=== PATIENT | male | born 1980 | race Caucasian/White ===

== ENCOUNTER 2017-12-29 18:06 | Inpatient (IN) ==
[2017-12-29 22:05] LABS: Baso # (Auto) 0.1 th/mm3 (0.0-0.2); Baso % (Auto) 0.9 % (0.0-2.0); Eos # (Auto) 0.1 th/mm3 (0.0-0.4); Eos % (Auto) 0.5 % (0.0-4.0); Hematocrit 39.2 % (39.0-51.0); Hemoglobin 12.7 gm/dL (13.0-17.0); Lymph # (Auto) 0.9 th/mm3 (1.0-4.8); Lymph % (Auto) 8.5 % (9.0-44.0); Mean Corpuscular HGB Conc 32.3 % (32.0-36.0); Mean Corpuscular Hemoglobin 27.7 pg (27.0-34.0); Mean Corpuscular Volume 85.6 fL (80.0-100.0); Mean Platelet Volume 7.9 fL (7.0-11.0); Mono # (Auto) 0.5 th/mm3 (0.0-0.9); Mono % (Auto) 4.6 % (0.0-8.0); Neut # (Auto) 9.6 th/mm3 (1.8-7.7); Neut % (Auto) 85.5 % (16.0-70.0); Platelet Count 423 th/mm3 (150-450); Red Blood Count 4.58 mil/mm3 (4.50-5.90); Red Cell Distribution Width 15.1 % (11.6-17.2); White Blood Count 11.2 th/mm3 (4.0-11.0)
--- NOTE | 2017-12-29 22:09 | CT ---
EXAM DATE: 12/29/2017 9:34 PM EDT AGE/SEX: 37 years / Male INDICATIONS: Abdomen pain past week. CLINICAL DATA: This is the patient's initial encounter. Patient reports that signs and symptoms have been present for 1 week and indicates a pain score of 7/10. MEDICAL/SURGICAL HISTORY: None. Non-responsive. ORAL CONTRAST: No oral contrast ingested. RADIATION DOSE: 8.89 CTDI (mGy) COMPARISON: No prior exams available for comparison. TECHNIQUE: Multiple contiguous axial images were obtained through the abdomen and pelvis following b olus infusion of 95 ml Omnipaque 350 (iohexol) nonionic water-soluble contrast as a single exam dos e. No oral contrast ingested. Using automated exposure control and adjustment of the mA and/or kV ac cording to patient size, radiation dose was kept as low as reasonably achievable to obtain optimal di agnostic quality images. DICOM format image data is available electronically for review and comparis on. FINDINGS: Lower Lungs: The visualized lower lungs are clear. Liver: The liver has a homogeneous density without space-occupying lesion. There is no dilation of th e biliary tree. Spleen: Homogeneous density without enlargement. Pancreas: Unremarkable without mass or calcification. Kidneys: Normal in size and shape. No evidence of mass or hydronephrosis. Adrenal Glands: Unremarkable. Aorta: The aorta and proximal iliac vessels are grossly unremarkable without aneurysmal dilation. Bowel/Mesentery: There is marked distention of the proximal colon to the level of the distal transve rse where there is a discrete transition. The bowel at the splenic flexure shows diffuse mural thicke hansel over a short segment with decompression of the descending colon. Abdominal Wall: Intact. Retroperitoneum: No evidence of adenopathy in the retrocrural, para-aortic, or deep pelvic regions. Bladder: Contours are smooth. Reproductive Organs: No abnormal masses or calcifications seen. Inguinal: The inguinal region is unremarkable without evidence of adenopathy. Bony Structures: Unremarkable. Post Contrast: No abnormal areas of enhancement seen. CONCLUSION: 1. Distention of the proximal colon to the distal transverse with a discrete transition at the level of the splenic flexure. 2. There is a short segment of diffuse mural thickening at the splenic flexure. Findings could repre sent a focal colitis or possibly a carcinoma forming an apple core lesion. With the abrupt transition , I favor the latter. Colonoscopy is recommended for further evaluation. Electronically signed by: Canelo Montero MD 12/29/2017 10:07 PM EDT
[2017-12-29 22:19] LABS: Albumin 3.6 g/dL (3.4-5.0); Anion Gap 9 meq/L (5-15); Aspartate Aminotransferase 14 U/L (15-37); Blood Urea Nitrogen 11 mg/dL (7-18); Carbon Dioxide 27.8 meq/L (21.0-32.0); Chloride 104 meq/L (98-107); Glomerular Filtration Rate 85 mL/min (>89); Glucose,Random 106 mg/dL (74-106); Lipase 50 U/L (73-393); Magnesium 2.4 mg/dL (1.5-2.5); Potassium 3.7 meq/L (3.5-5.1); Sodium 141 meq/L (136-145)
[2017-12-29 22:23] LABS: Alanine Aminotransferase 19 U/L (12-78); Alkaline Phosphatase 65 U/L (45-117); Total Protein 8.2 g/dL (6.4-8.2)
[2017-12-29] MEDS ORDERED: hydrALAZINE HCl Inj 20 MG/ML Vial IV.PUSH ONE (22:39)
[2017-12-29] MEDS ORDERED: Sod Chloride 0.9% Inj 1,000 ML IV.SIG SCH (22:45)
[2017-12-29 22:46] LABS: Bilirubin,Urine Negative (Negative); Clarity,Urine Hazy (Clear); Color,Urine Yellow (Yellw/Straw); Glucose,Urine (UA) Negative (Negative); Leukocyte Esterase,Urine Negative (Negative); Mucus,Urine Few /lpf (Occasional); Nitrite,Urine Negative (Negative); Specific Gravity,Urine 1.027 (1.002-1.035); Squamous Epithelial Cell,Urine <1 /hpf (0-5)
--- NOTE | 2017-12-30 00:29 | P.HP ---
History of Present Illness Service: [facility] Primary Care Physician: No Primary Care Physician History of Present Illness: 37-year-old male with no significant past medical history presents to the emergency department for evaluation of abdominal pain. The patient is extremely lethargic and history is obtained mostly from his girlfriend. She reports he has had chronic "digestive issues" since she has known him. She states that for the past 2 days he has had a sharp, stabbing epigastric pain that acutely worsened today. He has had multiple episodes of nonbloody nonbilious emesis and constant nausea. His last bowel movement was approximately 5 days ago. He reports an 8 pound weight loss over the last week. He denies chest pain or shortness of breath. No fever/chills. Inpatient Certification: I certify that the inpatient services were ordered in accordance with Medicare regulations governing the order. This includes certification that hospital inpatient services are reasonable and necessary and in the case of services not specified as inpatient-only under 42 CFR 419.22(n), that they are appropriately provided as inpatient services in accordance to with the 2-midnight benchmark under 43 CFR 412.3(e) Estimated Total Length of Stay (Days): 2 Plans for Post Hospital Care: Home Review of Systems All other systems reviewed negative except as stated in [facility]PI [facility] - History History Provided By: Patient - Medical History Medical History: Medical History (Last Reviewed 12/30/17 @ 00:22 by Arabella Florez MD) Patient denies medical problems - Surgical History Surgical History: Surgical History (Last Reviewed 12/30/17 @ 00:22 by Arabella Florez MD) No history of previous surgery - Family History Family History: Family History (Last Updated 12/30/17 @ 00:22 by Arabella Florez MD) Other Family history unknown - Tobacco History Tobacco Use In Past 30 Days: Yes Smoking Status: Current every day smoker Tobacco Type: Cigarettes - Alcohol History How Often Do You Have a Drink Containing Alcohol: Never - Substance Use History Substance History: Past History - Substance Use Type Crack/Cocaine Status: Sustained Remission - Travel History Recent Travel in the [place] Within the Last 8 Weeks: No Recent Travel Out of the Country Within the Last 8 Weeks: No - Immunization History Tetanus Immunization: <5 Years Medications and Allergies Active Medications: Active Medications Acetaminophen (Tylenol) 650 mg PO Q4H PRN PRN Reason: Temp > 100.4 Sodium Chloride (Ns Inj) 1,000 mls @ 0 mls/hr IV.SIG BOLUS NIGHAT Last Infusion: 12/29/17 23:52 Dose: Infused Sodium Chloride (Ns Inj) 1,000 mls @ 100 mls/hr IV.CONT .Q10H NIGHAT Ondansetron HCl (Zofran Inj) 4 mg IV.PUSH Q6H PRN PRN Reason: NAUSEA OR VOMITING Sodium Chloride (Ns Flush) 2 ml IV.FLUSH PRN PRN PRN Reason: FLUSH AFTER USING IV ACCESS Allergies Allergy/AdvReac Type Severity Reaction Status Date / Time No Known Allergies Allergy Uncoded 08/31/13 13:25 Home Medications Medication Instructions Recorded Confirmed Type No Known Home Medications 12/29/17 12/29/17 History Exam Vital signs: Vital Signs 12/29/17 18:08 12/29/17 21:00 12/29/17 22:00 Temperature 97.8 F Pulse Rate 79 69 68 Respiratory Rate 16 19 16 Blood Pressure 187/96 H 194/112 H 192/88 H Pulse Oximetry 98 97 12/29/17 22:52 12/29/17 23:02 12/29/17 23:55 Temperature Pulse Rate 69 61 65 Respiratory Rate 15 15 16 Blood Pressure 198/110 H 185/103 H 151/87 H Pulse Oximetry 97 97 97 Intake & Output 12/29/17 12/29/17 12/30/17 06:59 18:59 06:59 Intake Total 1000 / 1000 Balance 1000 / 1000 Weight 65.771 kg Intake: IV 1000 / 1000 NS Inj 1,000 ML @ Wide Open IV. 1000 / 1000 SIG BOLUS NIGHAT Rx#:[id number] Narrative: Gen.: No acute distress Head: Normocephalic. Atraumatic. EENT: Pupils equal round and reactive to light. Nose without drainage. Airway intact. Throat without injection. Cardiovascular: Regular rate and rhythm. No murmurs, rubs or gallops. Respiratory: Lungs clear to auscultation bilaterally. No wheezes or rhonchi. Abdomen: Soft, diffusely tender to palpation, nondistended. No peritoneal signs. Musculoskeletal: No gross deformities. No edema. Skin: No obvious rashes or erythema. Neuro: Sensory and motor grossly intact. Cranial nerves II through XII grossly intact. Results - Labs CBC & Chem 7: 12/29/17 21:27 12/29/17 21:27 Labs: Laboratory Results - last 24 hr 12/29/17 12/29/17 12/29/17 21:27 21:27 22:07 WBC 11.2 H RBC 4.58 Hgb 12.7 L Hct 39.2 MCV 85.6 MCH 27.7 MCHC 32.3 RDW 15.1 Plt Count 423 MPV 7.9 Neut % (Auto) 85.5 H Lymph % (Auto) 8.5 L [place] % (Auto) 4.6 Eos % (Auto) 0.5 Baso % (Auto) 0.9 Neut # (Auto) 9.6 H Lymph # (Auto) 0.9 L [place] # (Auto) 0.5 Eos # (Auto) 0.1 Baso # (Auto) 0.1 WBC Differential . Differential Comment Auto diff final Sodium 141 Potassium 3.7 Chloride 104 Carbon Dioxide 27.8 Anion Gap 9 BUN 11 Creatinine 0.99 Estimated GFR 85 L Random Glucose 106 Calcium 9.0 Magnesium 2.4 Total Bilirubin 0.6 AST 14 L ALT 19 Alkaline Phosphatase 65 Total Protein 8.2 Albumin 3.6 Lipase 50 L Urine Color Yellow Urine Clarity Hazy H Urine pH 6.0 Ur Specific [place] 1.027 Urine Protein Negative Urine Glucose (UA) Negative Urine Ketones 20 Urine Occult Blood Negative Urine Nitrate Negative Urine Bilirubin Negative Urine Urobilinogen Less than 2 Ur Leukocyte Esterase Negative Urine RBC 1 Urine WBC 3 Ur Squamous Epith Cells <1 Urine Mucus Few H Micro UA Comment Culture not ind Ur Microscopic Review Not Reportable Urine Culture Comments Culture not ind - Imaging Impressions Abdomen/Pelvis CT 12/29/17 21:21 CONCLUSION: 1. Distention of the proximal colon to the distal transverse with a discrete transition at the level of the splenic flexure. 2. There is a short segment of diffuse mural thickening at the splenic flexure. Findings could represent a focal colitis or possibly a carcinoma forming an apple core lesion. With the abrupt transition, I favor the latter. Colonoscopy is recommended for further evaluation. Caprini VTE Risk Assessment Caprini VTE Risk Assessment: No/Low Risk (score <= 1) Caprini Risk Assessment Model: Point Value = 1 Point Value = 2 Point Value = 3 Point Value = 5 Age 41-60 Minor surgery BMI > 25 kg/m2 Swollen legs Varicose veins or History of unexplained or recurrent spontaneous Oral contraceptives or hormone replacement Sepsis (< 1 month) Serious lung disease, including pneumonia (< 1 month) Abnormal pulmonary function Acute myocardial infarction Congestive heart failure (< 1 month) History of inflammatory bowel disease Medical patient at bed rest Age 61-74 Arthroscopic surgery Major open surgery (> 45 min) Laparoscopic surgery (> 45 min) Malignancy Confined to bed (> 72 hours) Immobilizing plaster cast Central venous access Age >= 75 History of VTE Family history of VTE Factor V Leiden Prothrombin [id number] Lupus anticoagulant Anticardiolipin antibodies Elevated serum homocysteine Heparin-induced thrombocytopenia Other congenital or acquired thrombophilia Stroke (< 1 month) Elective arthroplasty Hip, pelvis, or leg fracture Acute spinal cord injury (< 1 month) Prophylaxis Regimen: Total Risk Factor Score Risk Level Prophylaxis Regimen 0-1 Low Early ambulation 2 Moderate Order ONE of the following: *Sequential Compression Device (SCD) *Heparin 5000 units SQ BID 3-4 Higher Order ONE of the following medications: *Heparin 5000 units SQ TID *Enoxaparin/Lovenox 40 mg SQ daily (WT < 150 kg, CrCl > 30 mL/min) *Enoxaparin/Lovenox 30 mg SQ daily (WT < 150 kg, CrCl > 10-29 mL/min) *Enoxaparin/Lovenox 30 mg SQ BID (WT < 150 kg, CrCl > 30 mL/min) AND/OR *Sequential Compression Device (SCD) 5 or more Highest Order ONE of the following medications: *Heparin 5000 units SQ TID (Preferred with Epidurals) *Enoxaparin/Lovenox 40 mg SQ daily (WT < 150 kg, CrCl > 30 mL/min) *Enoxaparin/Lovenox 30 mg SQ daily (WT < 150 kg, CrCl > 10-29 mL/min) *Enoxaparin/Lovenox 30 mg SQ BID (WT < 150 kg, CrCl > 30 mL/min) AND *Sequential Compression Device (SCD) Assessment and Plan - Plan Assessment/plan: 1. Colonic obstruction/? Mass CT of the abdomen/pelvis shows distention of the proximal colon distal to the transverse with a discrete transition at the level of the splenic flexure. There is a short segment of diffuse mural thickening at the splenic flexure which could represent a focal colitis or possibly carcinoma forming an apple core lesion. Gastroenterology consulted, appreciate assistance 2. Lethargy Unclear etiology Urine drug screen pending Holding pain medications until patient more alert FEN N.p.o. NS at 100 cc/hour Electrolytes: Monitor and replete as needed
[2017-12-30 00:54] LABS: Amphetamine Screen,Urine Pos (Neg); Barbiturate Screen,Urine Neg (Neg); Cannabinoid Screen,Urine Neg (Neg); Cocaine Screen,Urine Neg (Neg)
[2017-12-30 01:06] LABS: Opiate Screen,Urine Neg (Neg)
--- NOTE | 2017-12-30 01:11 | ED ---
HPI General Chief complaint: Abdominal Pain Stated complaint: Patient states stomach pain Time Seen by Provider: 12/29/17 21:07 History of Present Illness HPI narrative: Patient is a 37-year-old male presents emergency department for evaluation of acute on chronic abdominal pain. Patient states his had abdominal pain for about a year but got acutely worse over the palpable past week. Patient has been nauseous vomiting and has had little to no bowel output over the past week. No fevers no cough no congestion no weight loss. No blood in his stool. Patient does not a primary care provider but had been seen here at least once in the emergency department patient fairly somnolent bordering on lethargic on arrival but awakes P did minimal physical stimulation of the shoulders. He adamantly denies ingesting any substance or alcohol tonight. He was vomiting prior to my assessment and was given Zofran by nursing on my verbal order. Patient denies any hematemesis denies bilious emesis. States the pain is primarily in his right lower quadrant, duration associated signs and symptoms as above, states cramping in nature. Related Data Home Medications Medication Instructions Recorded Confirmed No Known Home Medications 12/29/17 12/29/17 Allergies Allergy/AdvReac Type Severity Reaction Status Date / Time No Known Allergies Allergy Uncoded 08/31/13 13:25 Review of Systems ROS: all other systems reviewed are negative [facility] Family History Family History Other Family history unknown Social History Social History Substance History: Past History Smoking Status: Current every day smoker Tobacco Type: Cigarettes How Often Do You Have a Drink Containing Alcohol: Never Recent Travel in [facility] within the Last 8 Weeks: No Recent Out of Country Travel within the Last 8 Weeks: No Substance Abuse Detail Crack/Cocaine: Substance Use Status: Sustained Remission Immunization History Tetanus Immunization: <5 Years Exam Narrative Exam Narrative: GENERAL: Well-developed well-nourished somnolent bordering on lethargic but in no obvious distress peer SKIN: Focused skin assessment warm/dry. HEAD: Atraumatic. Normocephalic. EYES: Pupils equal and round. No scleral icterus. No injection or drainage. ENT: No nasal bleeding or discharge. Mucous membranes pink and moist. NECK: Trachea midline. No JVD. CARDIOVASCULAR: Regular rate and rhythm. No murmur appreciated. RESPIRATORY: No accessory muscle use. Clear to auscultation. Breath sounds equal bilaterally. GASTROINTESTINAL: Abdomen soft, non-tender, nondistended. Hepatic and splenic margins not palpable. Percussion of the abdomen yields no tenderness but it is tympanic to percussion. Patient does have bowel sounds present, rectal exam deferred. MUSCULOSKELETAL: No obvious deformities. No clubbing. No cyanosis. No edema. NEUROLOGICAL: Awake and alert. No obvious cranial nerve deficits. Motor grossly within normal limits. Normal speech. PSYCHIATRIC: Appropriate mood and affect; insight and judgment normal. Course Initial Documented Vital Signs Temperature 97.8 F 12/29/17 18:08 Pulse Rate 79 12/29/17 18:08 Respiratory Rate 16 12/29/17 18:08 Blood Pressure 187/96 H 12/29/17 18:08 Last Documented Vital Signs Temperature 97.8 F 12/29/17 18:08 Pulse Rate 65 12/29/17 23:55 Respiratory Rate 16 12/29/17 23:55 Blood Pressure 151/87 H 12/29/17 23:55 Pulse Oximetry 97 12/29/17 23:55 Medical Decision Making MDM Narrative Medical decision making narrative: Patient room in the emergency department, certainly is somnolent and I wonder about his electrolytes, CBC and BMP are reassuring. The patient does have some tenderness in right lower quadrant initial diagnostic considerations include appendicitis and I think he needs a CAT scan of his abdomen. CAT scan of the abdomen does show significantly dilated large bowel without any small bowel dilation. Radiologist states possibly mild colitis or even an obstructing mass at the colorectal junction. I tried to explain to the new differential considerations to the patient but he continues to drift off to sleep I speak to him, I have added an alcohol and urine drug screen to him. Either way I think he needs to come in and see gastroenterology for consideration of colonoscopy and decompressive colonoscopy and/or surgical consult with the former does not work. I do not see the utility of an NG decompression at this time. Patient was discussed with Dr. Florez who is agreeable. Medical Screen Exam Complete: Yes Emergency Medical Condition: Yes Lab Data Result diagrams: 12/29/17 21:27 12/29/17 21:27 Lab Results 12/29/17 12/29/17 12/29/17 Range/Units 21:27 21:27 22:07 WBC 11.2 H (4.0-11.0) th/mm3 RBC 4.58 (4.50-5.90) mil/mm3 Hgb 12.7 L (13.0-17.0) gm/dL Hct 39.2 (39.0-51.0) % MCV 85.6 (80.0-100.0) fL MCH 27.7 (27.0-34.0) pg MCHC 32.3 (32.0-36.0) % RDW 15.1 (11.6-17.2) % Plt Count 423 (150-450) th/mm3 MPV 7.9 (7.0-11.0) fL Neut % (Auto) 85.5 H (16.0-70.0) % Lymph % (Auto) 8.5 L (9.0-44.0) % [place] % (Auto) 4.6 (0.0-8.0) % Eos % (Auto) 0.5 (0.0-4.0) % Baso % (Auto) 0.9 (0.0-2.0) % Neut # (Auto) 9.6 H (1.8-7.7) th/mm3 Lymph # (Auto) 0.9 L (1.0-4.8) th/mm3 [place] # (Auto) 0.5 (0.0-0.9) th/mm3 Eos # (Auto) 0.1 (0.0-0.4) th/mm3 Baso # (Auto) 0.1 (0.0-0.2) th/mm3 WBC Differential . Differential Comment Auto diff final Sodium 141 (136-145) meq/L Potassium 3.7 (3.5-5.1) meq/L Chloride 104 (98-107) meq/L Carbon Dioxide 27.8 (21.0-32.0) meq/L Anion Gap 9 (5-15) meq/L BUN 11 (7-18) mg/dL Creatinine 0.99 (0.60-1.30) mg/dL Estimated GFR 85 L (>89) mL/min Random Glucose 106 (74-106) mg/dL Calcium 9.0 (8.5-10.1) mg/dL Magnesium 2.4 (1.5-2.5) mg/dL Total Bilirubin 0.6 (0.2-1.0) mg/dL AST 14 L (15-37) U/L ALT 19 (12-78) U/L Alkaline Phosphatase 65 (45-117) U/L Total Protein 8.2 (6.4-8.2) g/dL Albumin 3.6 (3.4-5.0) g/dL Lipase 50 L (73-393) U/L Urine Color Yellow (Yellw/Straw) Urine Clarity Hazy H (Clear) Urine pH 6.0 (5.0-8.5) Ur Specific [place] 1.027 (1.002-1.035) Urine Protein Negative (Neg-Trace) mg/dL Urine Glucose (UA) Negative (Negative) mg/dL Urine Ketones 20 (Negative) mg/dL Urine Occult Blood Negative (Negative) Urine Nitrate Negative (Negative) Urine Bilirubin Negative (Negative) Urine Urobilinogen Less than 2 (Less than 2) mg/dL Ur Leukocyte Esterase Negative (Negative) Urine RBC 1 (0-3) /hpf Urine WBC 3 (0-5) /hpf Ur Squamous Epith Cells <1 (0-5) /hpf Urine Mucus Few H (Occasional) /lpf Micro UA Comment Culture not ind Ur Microscopic Review Not Reportable Urine Culture Comments Culture not ind Imaging Data Radiologist's impression: Abdomen/Pelvis CT 12/29/17 21:21 CONCLUSION: 1. Distention of the proximal colon to the distal transverse with a discrete transition at the level of the splenic flexure. 2. There is a short segment of diffuse mural thickening at the splenic flexure. Findings could represent a focal colitis or possibly a carcinoma forming an apple core lesion. With the abrupt transition, I favor the latter. Colonoscopy is recommended for further evaluation. Discharge Plan Discharge Disposition Patient Disposition: 30 Still Patient Discharge Condition Condition: Stable Discharge Details Diagnosis: Large bowel obstruction Physicians Team ED Provider: Valente Ayala Primary Care Provider: Primary Care Pippa Johnson Attending Provider: Arabella Florez Other Providers: Lul Gibbons Status ED Status: Admitted Patient
[2017-12-30] MEDS: Sod Chloride 0.9% Inj 1,000 ML IV.CONT SCH ×3 (03:10→21:31)
--- NOTE | 2017-12-30 08:51 | P.PN ---
Subjective Interval history: This is a pleasant 37 y/o Male who came to ER with Abdominal pain, lethargic on admission, he has chronic abdominal symptoms. for two days with sharp and stabbing epigastric pain that acutely worsened today. He has had multiple episodes of nonbloody nonbilious emesis and constant nausea. His last bowel movement was approximately 5 days before coming to ER, 8 pound weight loss. 12/30: Seen in his bedroom, stable no nausea, vomit or diarrhea, his Girlfriend in the room, discussed with GI specialist's [employer] CLERK and recommended for EGD and Colonoscopy for tomorrow. Physical Exam Vital signs: Vital Signs 12/29/17 18:08 12/29/17 21:00 12/29/17 22:00 Temperature 97.8 F Pulse Rate 79 69 68 Respiratory Rate 16 19 16 Blood Pressure 187/96 H 194/112 H 192/88 H Pulse Oximetry 98 97 12/29/17 22:52 12/29/17 23:02 12/29/17 23:55 Temperature Pulse Rate 69 61 65 Respiratory Rate 15 15 16 Blood Pressure 198/110 H 185/103 H 151/87 H Pulse Oximetry 97 97 97 12/30/17 05:04 12/30/17 08:00 Temperature 97.4 F L 98 F Pulse Rate 62 69 Respiratory Rate 18 18 Blood Pressure 185/113 H 160/98 H Pulse Oximetry 99 99 Intake & Output 12/29/17 12/30/17 12/30/17 18:59 06:59 18:59 Intake Total 1000 / 1000 Output Total 300 / 300 Balance 700 / 700 Weight 65.771 kg 65.7 kg Intake: IV 1000 / 1000 NS Inj 1,000 ML @ Wide Open IV. 1000 / 1000 SIG BOLUS NIGHAT Rx#:[id number] Output: Urine 300 / 300 Other: # Voids 350 Narrative: Gen.: No acute distress Head: Normocephalic. Atraumatic. EENT: Pupils equal round and reactive to light. Nose without drainage. Airway intact. Throat without injection. Cardiovascular: Regular rate and rhythm. No murmurs, rubs or gallops. Respiratory: Lungs clear to auscultation bilaterally. No wheezes or rhonchi. Abdomen: Soft, diffusely tender to palpation, nondistended. No peritoneal signs. Musculoskeletal: No gross deformities. No edema. Skin: No obvious rashes or erythema. Neuro: Sensory and motor grossly intact. Cranial nerves II through XII grossly intact. Results - Labs CBC & Chem 7: 12/29/17 21:27 12/29/17 21:27 Laboratory Results - last 24 hr 12/29/17 12/29/17 12/29/17 21:27 21:27 21:27 WBC 11.2 H RBC 4.58 Hgb 12.7 L Hct 39.2 MCV 85.6 MCH 27.7 MCHC 32.3 RDW 15.1 Plt Count 423 MPV 7.9 Neut % (Auto) 85.5 H Lymph % (Auto) 8.5 L [place] % (Auto) 4.6 Eos % (Auto) 0.5 Baso % (Auto) 0.9 Neut # (Auto) 9.6 H Lymph # (Auto) 0.9 L [place] # (Auto) 0.5 Eos # (Auto) 0.1 Baso # (Auto) 0.1 WBC Differential . Differential Comment Auto diff final Sodium 141 Potassium 3.7 Chloride 104 Carbon Dioxide 27.8 Anion Gap 9 BUN 11 Creatinine 0.99 Estimated GFR 85 L Random Glucose 106 Calcium 9.0 Magnesium 2.4 Total Bilirubin 0.6 AST 14 L ALT 19 Alkaline Phosphatase 65 Total Protein 8.2 Albumin 3.6 Lipase 50 L Urine Color Urine Clarity Urine pH Ur Specific Organ Urine Protein Urine Glucose (UA) Urine Ketones Urine Occult Blood Urine Nitrate Urine Bilirubin Urine Urobilinogen Ur Leukocyte Esterase Urine RBC Urine WBC Ur Squamous Epith Cells Urine Mucus Micro UA Comment Ur Microscopic Review Urine Culture Comments Urine Opiates Screen Ur Barbiturates Screen Ur Amphetamines Screen U Benzodiazepines Scrn Urine Cocaine Screen U Cannabinoids Screen Serum Alcohol Less than 3 12/29/17 12/29/17 22:07 22:07 WBC RBC Hgb Hct MCV MCH MCHC RDW Plt Count MPV Neut % (Auto) Lymph % (Auto) [place] % (Auto) Eos % (Auto) Baso % (Auto) Neut # (Auto) Lymph # (Auto) [place] # (Auto) Eos # (Auto) Baso # (Auto) WBC Differential Differential Comment Sodium Potassium Chloride Carbon Dioxide Anion Gap BUN Creatinine Estimated GFR Random Glucose Calcium Magnesium Total Bilirubin AST ALT Alkaline Phosphatase Total Protein Albumin Lipase Urine Color Yellow Urine Clarity Hazy H Urine pH 6.0 Ur Specific Organ 1.027 Urine Protein Negative Urine Glucose (UA) Negative Urine Ketones 20 Urine Occult Blood Negative Urine Nitrate Negative Urine Bilirubin Negative Urine Urobilinogen Less than 2 Ur Leukocyte Esterase Negative Urine RBC 1 Urine WBC 3 Ur Squamous Epith Cells <1 Urine Mucus Few H Micro UA Comment Culture not ind Ur Microscopic Review Not Reportable Urine Culture Comments Culture not ind Urine Opiates Screen Neg Ur Barbiturates Screen Neg Ur Amphetamines Screen Pos H U Benzodiazepines Scrn Neg Urine Cocaine Screen Neg U Cannabinoids Screen Neg Serum Alcohol - Imaging Impressions Abdomen/Pelvis CT 12/29/17 21:21 CONCLUSION: 1. Distention of the proximal colon to the distal transverse with a discrete transition at the level of the splenic flexure. 2. There is a short segment of diffuse mural thickening at the splenic flexure. Findings could represent a focal colitis or possibly a carcinoma forming an apple core lesion. With the abrupt transition, I favor the latter. Colonoscopy is recommended for further evaluation. - Procedures None Assessment and Plan - Plan 1. Colonic obstruction/? Mass CT of the abdomen/pelvis shows distention of the proximal colon distal to the transverse with a discrete transition at the level of the splenic flexure. There is a short segment of diffuse mural thickening at the splenic flexure which could represent a focal colitis or possibly carcinoma forming an apple core lesion. GI specialist recommended for EGD and Colonoscopy for tomorrow. 2. Lethargy Improved. 3. Hypertension probable secondary to Stress, IV fluids giving management PRN for systolic blood pressure >160 mm Hg. NPO at midnight. NS at 100 cc/hour Electrolytes: Monitor and replete as needed Code Status: Full Code. Discussed Condition With: patient, his Girlfriend in the room and nurse miss Alonzo.
--- NOTE | 2017-12-30 12:31 | P.CONGI ---
History of Present Illness Consult date: 12/30/17 Consult reason: Abdominal pain Apple core lesion Chief complaint: Large Bowel Obstruction History of Present Illness: This patient is a 37-year-old male with no significant past medical history. Patient's states that he presented to the emergency department at [facility] on 12/29/2017 with complaints of abdominal pain. Patient states that since 2013 he is has suffered with intestinal cramping. He reports being in [facility] at the time and was given Bentyl which caused him to have increased nausea and did not relieve the abdominal cramping. . He states that that time he had a 70 pound weight loss in a span of 2 months. States he is always had abdominal pain and has tried to follow-up with GI but could not afford the co- pay. Patient states 2-3 months ago he was diagnosed by CT abdomen and pelvis with some type of "intestinal inflammation". He was unable to follow-up due to financial restraints. Patient denies ever having had an EGD or colonoscopy. States that he has not had a BM for 1 week, normally stools are daily hard and brown without any noted bleeding. Patient denies any difficulty swallowing or heartburn . Denies any known family history for any gastrointestinal disorders/diseases. Patient states that he smokes half a pack of cigarettes per day and does not use alcohol. Patient endorses generalized abdominal pain with bloating and nausea for 1 week. He denies any fever or chills. Patient describes discomfort as a burning pressure that is intermittent more so on the right lower quadrant. States pain is somewhat alleviated by rest but definitely aggravated by food intake. <Valentine Alberto - Last Filed: 12/30/17 12:15> Review of Systems All other systems reviewed negative except as stated in HPI Constitutional: Reports anorexia, Reports fatigue <Valentine Alberto - Last Filed: 12/30/17 12:15> PMFSH - History History Provided By: Patient - Medical History Medical History: Medical History (Last Reviewed 12/30/17 @ 00:22 by Arabella Florez MD) Patient denies medical problems - Surgical History Surgical History: Surgical History (Last Reviewed 12/30/17 @ 00:22 by Arabella Florez MD) No history of previous surgery - Family History Family History: Family History (Last Updated 12/30/17 @ 00:22 by Arabella Florez MD) Other Family history unknown - Tobacco History Tobacco Use In Past 30 Days: Yes Smoking Status: Current every day smoker Tobacco Type: Cigarettes - Alcohol History How Often Do You Have a Drink Containing Alcohol: Never - Substance Use History Substance History: Past History - Substance Use Type Crack/Cocaine Status: Sustained Remission - Travel History Recent Travel in the [place] Within the Last 8 Weeks: No Recent Travel Out of the Country Within the Last 8 Weeks: No - Immunization History Tetanus Immunization: <5 Years <Valentine Ablerto - Last Filed: 12/30/17 12:15> - Medical History Medical History: Medical History (Last Reviewed 12/30/17 @ 00:22 by Arabella Florez MD) Patient denies medical problems - Surgical History Surgical History: Surgical History (Last Reviewed 12/30/17 @ 00:22 by Arabella Florez MD) No history of previous surgery - Family History Family History: Family History (Last Updated 12/30/17 @ 00:22 by Arabella Florez MD) Other Family history unknown <Lul Gibbons - Last Filed: 12/30/17 22:54> Medications and Allergies Active Medications: Active Medications Acetaminophen (Tylenol) 650 mg PO Q4H PRN PRN Reason: Temp > 100.4 Sodium Chloride (Ns Inj) 1,000 mls @ 0 mls/hr IV.SIG BOLUS [facility] Last Infusion: 12/29/17 23:52 Dose: Infused Sodium Chloride (Ns Inj) 1,000 mls @ 100 mls/hr IV.CONT .Q10H NIGHAT Last Admin: 12/30/17 03:10 Dose: 100 mls/hr Ondansetron HCl (Zofran Inj) 4 mg IV.PUSH Q6H PRN PRN Reason: NAUSEA OR VOMITING Polyethylene Glycol/Electrolytes (Colyte Liq) 4,000 ml PO ONCE ONE Stop: 12/30/17 16:01 Sodium Chloride (Ns Flush) 2 ml IV.FLUSH PRN PRN PRN Reason: FLUSH AFTER USING IV ACCESS <Valentine Alberto - Last Filed: 12/30/17 12:15> Active Medications: Active Medications Acetaminophen (Tylenol) 650 mg PO Q4H PRN PRN Reason: Temp > 100.4 Clonidine HCl (Catapres) 0.1 mg PO Q6H PRN PRN Reason: HYPERTENSION Last Admin: 12/30/17 21:30 Dose: 0.1 mg Sodium Chloride (Ns Inj) 1,000 mls @ 0 mls/hr IV.SIG BOLUS NIGHAT Last Infusion: 12/29/17 23:52 Dose: Infused Sodium Chloride (Ns Inj) 1,000 mls @ 100 mls/hr IV.CONT .Q10H NIGHAT Last Admin: 12/30/17 21:31 Dose: 100 mls/hr Ondansetron HCl (Zofran Inj) 4 mg IV.PUSH Q6H PRN PRN Reason: NAUSEA OR VOMITING Sodium Chloride (Ns Flush) 2 ml IV.FLUSH PRN PRN PRN Reason: FLUSH AFTER USING IV ACCESS <Lul Gibbons E - Last Filed: 12/30/17 22:54> Allergies Allergy/AdvReac Type Severity Reaction Status Date / Time No Known Allergies Allergy Uncoded 08/31/13 13:25 Home Medications Medication Instructions Recorded Confirmed Type No Known Home Medications 12/29/17 12/29/17 History Exam Vital signs: Vital Signs 12/29/17 18:08 12/29/17 21:00 12/29/17 22:00 Temperature 97.8 F Pulse Rate 79 69 68 Respiratory Rate 16 19 16 Blood Pressure 187/96 H 194/112 H 192/88 H Pulse Oximetry 98 97 12/29/17 22:52 12/29/17 23:02 12/29/17 23:55 Temperature Pulse Rate 69 61 65 Respiratory Rate 15 15 16 Blood Pressure 198/110 H 185/103 H 151/87 H Pulse Oximetry 97 97 97 12/30/17 05:04 12/30/17 08:00 Temperature 97.4 F L 98 F Pulse Rate 62 69 Respiratory Rate 18 18 Blood Pressure 185/113 H 160/98 H Pulse Oximetry 99 99 Intake & Output 12/29/17 12/30/17 12/30/17 18:59 06:59 18:59 Intake Total 1000 / 1000 Output Total 300 / 300 Balance 700 / 700 Weight 65.771 kg 65.7 kg Intake: IV 1000 / 1000 NS Inj 1,000 ML @ Wide Open IV. 1000 / 1000 SIG BOLUS NIGHAT Rx#:[id number] Output: Urine 300 / 300 Other: # Voids 350 - Constitutional mild distress - Routine HEENT Exam Head: Present: normocephalic - Routine Respiratory Exam Present: CTA bilaterally. Absent: accessory muscle use - Routine Cardiovascular Exam Present: RRR - Routine Abdominal Exam Present: soft, normoactive bowel sounds, tenderness, guarding. Absent: distended, firm - Routine Extremities Exam Present: full ROM, pulses intact. Absent: edema - Routine Skin Exam Present: dry, warm. Absent: pallor, jaundice - Routine Neurological Exam Present: alert, oriented X3 <Alberto,Valentine - Last Filed: 12/30/17 12:15> Vital signs: Vital Signs 12/29/17 23:02 12/29/17 23:55 12/30/17 05:04 Temperature 97.4 F L Pulse Rate 61 65 62 Respiratory Rate 15 16 18 Blood Pressure 185/103 H 151/87 H 185/113 H Pulse Oximetry 97 97 99 12/30/17 08:00 12/30/17 12:00 12/30/17 16:00 Temperature 98 F 98.4 F 98.5 F Pulse Rate 69 73 69 Respiratory Rate 18 18 18 Blood Pressure 160/98 H 147/96 H 153/88 H Pulse Oximetry 99 99 100 Intake & Output 12/30/17 12/30/17 12/31/17 06:59 18:59 06:59 Intake Total 1000 / 1000 1360 / 1360 1000 / 1000 Output Total 300 / 300 400 / 400 Balance 700 / 700 960 / 960 1000 / 1000 Weight 65.7 kg Intake: IV 1000 / 1000 1000 / 1000 1000 / 1000 NS Inj 1,000 ML @ 100 mls/hr IV 1000 / 1000 1000 / 1000 .CONT .Q10H NIGHAT Rx#:[id number] NS Inj 1,000 ML @ Wide Open IV. 1000 / 1000 SIG BOLUS NIGHAT Rx#:[id number] Oral 360 / 360 Output: Urine 300 / 300 400 / 400 Other: # Voids 350 # Bowel Movements 0 <Lul Gibbons - Last Filed: 12/30/17 22:54> Results - Labs CBC & Chem 7: 12/29/17 21:27 12/29/17 21:27 Labs: Laboratory Results - last 24 hr 12/29/17 12/29/17 12/29/17 21:27 21:27 21:27 WBC 11.2 H RBC 4.58 Hgb 12.7 L Hct 39.2 MCV 85.6 MCH 27.7 MCHC 32.3 RDW 15.1 Plt Count 423 MPV 7.9 Neut % (Auto) 85.5 H Lymph % (Auto) 8.5 L [place] % (Auto) 4.6 Eos % (Auto) 0.5 Baso % (Auto) 0.9 Neut # (Auto) 9.6 H Lymph # (Auto) 0.9 L [place] # (Auto) 0.5 Eos # (Auto) 0.1 Baso # (Auto) 0.1 WBC Differential . Differential Comment Auto diff final Sodium 141 Potassium 3.7 Chloride 104 Carbon Dioxide 27.8 Anion Gap 9 BUN 11 Creatinine 0.99 Estimated GFR 85 L Random Glucose 106 Calcium 9.0 Magnesium 2.4 Total Bilirubin 0.6 AST 14 L ALT 19 Alkaline Phosphatase 65 Total Protein 8.2 Albumin 3.6 Lipase 50 L Urine Color Urine Clarity Urine pH Ur Specific [place] Urine Protein Urine Glucose (UA) Urine Ketones Urine Occult Blood Urine Nitrate Urine Bilirubin Urine Urobilinogen Ur Leukocyte Esterase Urine RBC Urine WBC Ur Squamous Epith Cells Urine Mucus Micro UA Comment Ur Microscopic Review Urine Culture Comments Urine Opiates Screen Ur Barbiturates Screen Ur Amphetamines Screen U Benzodiazepines Scrn Urine Cocaine Screen U Cannabinoids Screen Serum Alcohol Less than 3 12/29/17 12/29/17 22:07 22:07 WBC RBC Hgb Hct MCV MCH MCHC RDW Plt Count MPV Neut % (Auto) Lymph % (Auto) [place] % (Auto) Eos % (Auto) Baso % (Auto) Neut # (Auto) Lymph # (Auto) [place] # (Auto) Eos # (Auto) Baso # (Auto) WBC Differential Differential Comment Sodium Potassium Chloride Carbon Dioxide Anion Gap BUN Creatinine Estimated GFR Random Glucose Calcium Magnesium Total Bilirubin AST ALT Alkaline Phosphatase Total Protein Albumin Lipase Urine Color Yellow Urine Clarity Hazy H Urine pH 6.0 Ur Specific [place] 1.027 Urine Protein Negative Urine Glucose (UA) Negative Urine Ketones 20 Urine Occult Blood Negative Urine Nitrate Negative Urine Bilirubin Negative Urine Urobilinogen Less than 2 Ur Leukocyte Esterase Negative Urine RBC 1 Urine WBC 3 Ur Squamous Epith Cells <1 Urine Mucus Few H Micro UA Comment Culture not ind Ur Microscopic Review Not Reportable Urine Culture Comments Culture not ind Urine Opiates Screen Neg Ur Barbiturates Screen Neg Ur Amphetamines Screen Pos H U Benzodiazepines Scrn Neg Urine Cocaine Screen Neg U Cannabinoids Screen Neg Serum Alcohol - Imaging Impressions Abdomen/Pelvis CT 12/29/17 21:21 CONCLUSION: 1. Distention of the proximal colon to the distal transverse with a discrete transition at the level of the splenic flexure. 2. There is a short segment of diffuse mural thickening at the splenic flexure. Findings could represent a focal colitis or possibly a carcinoma forming an apple core lesion. With the abrupt transition, I favor the latter. Colonoscopy is recommended for further evaluation. <Valentine Alberto - Last Filed: 12/30/17 12:15> - Labs CBC & Chem 7: 12/29/17 21:27 12/29/17 21:27 Labs: Laboratory Results - last 24 hr 12/29/17 12/29/17 21:27 22:07 Urine Opiates Screen Neg Ur Barbiturates Screen Neg Ur Amphetamines Screen Pos H U Benzodiazepines Scrn Neg Urine Cocaine Screen Neg U Cannabinoids Screen Neg Serum Alcohol Less than 3 <Lul Gibbons - Last Filed: 12/30/17 22:54> Assessment and Plan (1) Abdominal pain Status: Acute Code(s): R10.9 - Unspecified abdominal pain - Plan This patient is a 37-year-old male with no significant past medical history. Patient's states that he presented to the emergency department at [facility] on 12/29/2017 with complaints of abdominal pain. Patient states that since 2013 he is has suffered with intestinal cramping. He reports being in [facility] at the time and was given Bentyl which caused him to have increased nausea and did not relieve the abdominal cramping. . He states that that time he had a 70 pound weight loss in a span of 2 months. States he is always had abdominal pain and has tried to follow-up with GI but could not afford the co- pay. Patient states 2-3 months ago he was diagnosed by CT abdomen and pelvis with some type of "intestinal inflammation". He was unable to follow-up due to financial restraints. Patient denies ever having had an EGD or colonoscopy. States that he has not had a BM for 1 week, normally stools are daily hard and brown without any noted bleeding. Patient denies any difficulty swallowing or heartburn . Denies any known family history for any gastrointestinal disorders/diseases. Patient states that he smokes half a pack of cigarettes per day and does not use alcohol. Patient endorses generalized abdominal pain with bloating and nausea for 1 week. He denies any fever or chills. Patient describes discomfort as a burning pressure that is intermittent more so on the right lower quadrant. States pain is somewhat alleviated by rest but definitely aggravated by food intake Abdominal pain/apple core lesion Patient presents 1 week history of generalized abdominal pain with bloating and nausea. History of same since 2013. (12/29) CT abdomen and pelvis revealed the following findings :. Distention of the proximal colon to the distal transverse with a discrete transition at the level of the splenic flexure. There is a short segment of diffuse mural thickening at the splenic flexure. Findings could represent a focal colitis or possibly a carcinoma forming an apple core lesion. WBC 11.2 hemoglobin 12.7 hematocrit 39.2 total bilirubin 0.6 AST 14 ALT 19 alk phos 65 lipase 50 Plan -Clear liquid diet today -N.p.o. after midnight -Obtain consent for EGD and colonoscopy -Pain medication and antiemetics as per attending -IV hydration -Supportive care -Further recommendations to follow based on patient's status and findings This patient has been seen by myself and Dr. Gibbons and this note is written on his behalf - Attending Attestation Dr. Gibbons <Valentine Alberto - Last Filed: 12/30/17 12:15> (1) Abdominal pain Status: Acute Code(s): R10.9 - Unspecified abdominal pain - Plan Patient seen and examined Agree with above history and physical Continue with current supportive care Monitor labs Plan for an EGD with a colonoscopy tomorrow <Lul Gibbons E - Last Filed: 12/30/17 22:54>
[2017-12-30] MEDS ORDERED: PEG 3350/E-Lyte Soln 4000 ML Bottle PO ONE (16:00)
[2017-12-30] MEDS ORDERED: Morphine Sulfate Inj 2 MG/ML Vial IV.PUSH ONE (23:45)
[2017-12-31 07:06] LABS: Baso % (Auto) 0.4 % (0.0-2.0); Eos % (Auto) 0.2 % (0.0-4.0); Hematocrit 42.1 % (39.0-51.0); Hemoglobin 13.8 gm/dL (13.0-17.0); Lymph # (Auto) 0.5 th/mm3 (1.0-4.8); Mean Corpuscular HGB Conc 32.8 % (32.0-36.0); Mean Corpuscular Volume 85.3 fL (80.0-100.0); Mono # (Auto) 0.4 th/mm3 (0.0-0.9); Mono % (Auto) 3.5 % (0.0-8.0); Neut % (Auto) 90.9 % (16.0-70.0); Platelet Count 384 th/mm3 (150-450); Red Blood Count 4.94 mil/mm3 (4.50-5.90); Red Cell Distribution Width 15.1 % (11.6-17.2)
[2017-12-31 07:31] LABS: Carcinoembryonic Antigen 3.6 ng/mL (0.2-5.0)
[2017-12-31 07:34] LABS: Anion Gap 9 meq/L (5-15); Blood Urea Nitrogen 11 mg/dL (7-18); Calcium 8.5 mg/dL (8.5-10.1); Chloride 99 meq/L (98-107); Glomerular Filtration Rate Greater Than 89 mL/min (>89); Glucose,Random 76 mg/dL (74-106); Potassium 3.6 meq/L (3.5-5.1); Sodium 135 meq/L (136-145)
[2017-12-31] MEDS: Sod Chloride 0.9% Inj 1,000 ML IV.CONT SCH ×2 (07:41→17:11)
[2017-12-31] MEDS ORDERED: Magnesium Citrate Liq 300 ML Bottle PO ONE ×4 (09:00→23:58)
[2017-12-31] MEDS ORDERED: Chlorhexidine Gluconate 2% 1 Pack (2 Cloths) TOPICAL ONE (09:57)
[2017-12-31] MEDS ORDERED: Metoprolol Tartrate 25 MG Tablet PO ONE (09:57)
[2017-12-31] MEDS ORDERED: Sodium Chlor 0.9% Inj 500 ML IV.SIG ONE (10:00)
--- NOTE | 2017-12-31 11:33 | P.PCN ---
Date of procedure: 12/31/17 Pre-op diagnosis: Abdominal pain, abnormal findings on CT suggestive of colon lesion Procedure: PROCEDURE PERFORMED EGD followed by an incomplete colonoscopy to the sigmoid region due to poor prep PROCEDURE: The procedure, risks and benefits were discussed with Patient/POA and informed consent was obtained. Anesthesia sedated Patient with Diprivan. Patient was placed in the left lateral decubitus position. EGD: The Pentax videoscope was introduced through the oropharynx and advanced to the second portion of the duodenum under direct visualization. Retroflexion was performed in the stomach. FINDINGS: The esophagus this appeared to be unremarkable and within normal limits The stomach this to appear to be unremarkable and within normal limits The duodenum also appeared to be unremarkable within normal limits possible slight dilation of the duodenal lumen but otherwise unremarkable Colonoscopy: The Pentax videoscope was introduced through the rectum and advanced to sigmoid. Retroflexion was performed in the rectum. Colonic prep was very poor FINDINGS: Little could be seen as far as the colonic mucosa due to poor prep the procedure was aborted ESTIMATED BLOOD LOSS: None SPECIMENS REMOVED: None COMPLICATIONS: None IMPRESSION: Normal EGD possibly slightly dilated duodenum Incomplete colonoscopy poor prep PLAN: Obtain CEA Continue with prepping and repeat colonoscopy in a.m. Anesthesia: MAC Surgeon: Lul Gibbons Condition: stable Disposition: floor
[2017-12-31] MEDS ORDERED: Influenza (Quadrivalent) Vaccine 0.5 ML Syringe IM ONE (15:30)
--- NOTE | 2017-12-31 16:51 | P.PN ---
Subjective Interval history: This is a pleasant 37 y/o Male who came to ER with Abdominal pain, lethargic on admission, he has chronic abdominal symptoms. for two days with sharp and stabbing epigastric pain that acutely worsened today. He has had multiple episodes of nonbloody nonbilious emesis and constant nausea. His last bowel movement was approximately 5 days before coming to ER, 8 pound weight loss. 12/30: Seen in his bedroom, stable no nausea, vomit or diarrhea, his Girlfriend in the room, discussed with GI specialist's [employer] and recommended for EGD and Colonoscopy for tomorrow. 12/31: Stable in his bedroom status post EGD performed today found Normal EGD, Incomplete Colonoscopy due to Poor Colon Prep. recommended to obtain CEA, continue prepping and repeat colonoscopy in am tomorrow. no nausea vomit or diarrhea. Physical Exam Vital signs: Vital Signs 12/30/17 21:00 12/30/17 23:23 12/31/17 00:40 Temperature 98 F 98.2 F 97.8 F Pulse Rate 70 70 69 Respiratory Rate 20 17 17 Blood Pressure 189/101 H 189/102 H 142/91 H Pulse Oximetry 98 100 98 12/31/17 04:00 12/31/17 08:00 12/31/17 11:31 Temperature 98.3 F 98.3 F 98.1 F Pulse Rate 63 63 65 Respiratory Rate 20 16 16 Blood Pressure 171/84 H 175/98 H 123/82 Pulse Oximetry 100 100 100 Intake & Output 12/30/17 12/31/17 12/31/17 18:59 06:59 18:59 Intake Total 1360 / 1360 1000 / 1000 1200 / 1200 Output Total 400 / 400 Balance 960 / 960 1000 / 1000 1200 / 1200 Weight 68.039 kg Intake: IV 1000 / 1000 1000 / 1000 1000 / 1000 NS Inj 1,000 ML @ 100 mls/hr IV 1000 / 1000 1000 / 1000 1000 / 1000 .CONT .Q10H [facility] Rx#:[id number] Oral 360 / 360 Anesthesia Amount 200 / 200 Output: Urine 400 / 400 Other: # Voids 2 Date of Last Bowel Movement 12/30/17 # Bowel Movements 0 1 Weight On Admission 68.039 kg Narrative: Gen.: No acute distress Head: Normocephalic. Atraumatic. EENT: Pupils equal round and reactive to light. Nose without drainage. Airway intact. Throat without injection. Cardiovascular: Regular rate and rhythm. No murmurs, rubs or gallops. Respiratory: Lungs clear to auscultation bilaterally. No wheezes or rhonchi. Abdomen: Soft, diffusely tender to palpation, nondistended. No peritoneal signs. Musculoskeletal: No gross deformities. No edema. Skin: No obvious rashes or erythema. Neuro: Sensory and motor grossly intact. Cranial nerves II through XII grossly intact. Results - Labs CBC & Chem 7: 12/31/17 05:56 12/31/17 05:56 Laboratory Results - last 24 hr 12/31/17 12/31/17 12/31/17 05:56 05:56 05:56 WBC 11.0 RBC 4.94 Hgb 13.8 Hct 42.1 MCV 85.3 MCH 28.0 MCHC 32.8 RDW 15.1 Plt Count 384 MPV 8.0 Neut % (Auto) 90.9 H Lymph % (Auto) 5.0 L [place] % (Auto) 3.5 Eos % (Auto) 0.2 Baso % (Auto) 0.4 Neut # (Auto) 10.0 H Lymph # (Auto) 0.5 L [place] # (Auto) 0.4 Eos # (Auto) 0.0 Baso # (Auto) 0.0 WBC Differential . Differential Comment Auto diff final Sodium 135 L Potassium 3.6 Chloride 99 Carbon Dioxide 27.0 Anion Gap 9 BUN 11 Creatinine 0.86 Estimated GFR Greater than 89 Random Glucose 76 Calcium 8.5 Tumor Marker AFP 3.0 Carcinoembryonic Ag 3.6 12/31/17 12:49 WBC RBC Hgb Hct MCV MCH MCHC RDW Plt Count MPV Neut % (Auto) Lymph % (Auto) [place] % (Auto) Eos % (Auto) Baso % (Auto) Neut # (Auto) Lymph # (Auto) [place] # (Auto) Eos # (Auto) Baso # (Auto) WBC Differential Differential Comment Sodium Potassium Chloride Carbon Dioxide Anion Gap BUN Creatinine Estimated GFR Random Glucose Calcium Tumor Marker AFP Carcinoembryonic Ag 3.3 - Imaging Abdomen/Pelvis CT 12/29/17 21:21 CONCLUSION: 1. Distention of the proximal colon to the distal transverse with a discrete transition at the level of the splenic flexure. 2. There is a short segment of diffuse mural thickening at the splenic flexure. Findings could represent a focal colitis or possibly a carcinoma forming an apple core lesion. With the abrupt transition, I favor the latter. Colonoscopy is recommended for further evaluation. - Procedures Date of procedure: 12/31/17 Pre-op diagnosis: Abdominal pain, abnormal findings on CT suggestive of colon lesion EGD followed by an incomplete colonoscopy to the sigmoid region due to poor prep IMPRESSION: Normal EGD possibly slightly dilated duodenum Incomplete colonoscopy poor prep PLAN: Obtain CEA Continue with prepping and repeat colonoscopy in a.m. [place] [facility] [place] Lul Gibbons Assessment and Plan - Plan 1. Colonic obstruction/? Mass CT of the abdomen/pelvis shows distention of the proximal colon distal to the transverse with a discrete transition at the level of the splenic flexure. There is a short segment of diffuse mural thickening at the splenic flexure which could represent a focal colitis or possibly carcinoma forming an apple core lesion. 12/31: Status post EGD performed today found Normal EGD, Incomplete Colonoscopy due to Poor Colon Prep. recommended to obtain CEA, continue prepping and repeat colonoscopy in am tomorrow. 2. Hypertension probable secondary to Stress, IV fluids giving management PRN for systolic blood pressure >160 mm Hg. NPO at midnight. NS at 100 cc/hour Electrolytes: Monitor and replete as needed Code Status: Full code. Discussed Condition With: Patient, Nurse Miss Alonzo and his girlfriend. Discharge Planning: Once cleared by GI specialist.
[2017-12-31] MEDS: Acetaminophen 325 MG Tablet PO PRN ×2 (18:03→23:45)
[2018-01-01] MEDS: Sod Chloride 0.9% Inj 1,000 ML IV.CONT SCH ×2 (08:06→16:51)
--- NOTE | 2018-01-01 10:27 | P.PN ---
Subjective Interval history: Follow-up for large bowel obstruction. Patient is currently doing well. However, he complains of right-sided abdominal pain. He is scheduled for repeat colonoscopy today. Physical Exam Vital signs: Vital Signs 12/31/17 11:31 12/31/17 16:00 12/31/17 18:35 Temperature 98.1 F 98.7 F Pulse Rate 65 73 Respiratory Rate 16 16 16 Blood Pressure 123/82 114/76 Pulse Oximetry 100 98 12/31/17 20:00 01/01/18 00:00 01/01/18 08:00 Temperature 98.2 F 98.1 F 98.2 F Pulse Rate 70 65 62 Respiratory Rate 20 20 18 Blood Pressure 137/95 H 151/80 H 164/89 H Pulse Oximetry 100 96 98 Intake & Output 12/31/17 01/01/18 01/01/18 18:59 06:59 18:59 Intake Total 2700 / 2700 200 / 200 1000 / 1000 Balance 2700 / 2700 200 / 200 1000 / 1000 Weight 99.7 kg Intake: IV 2000 / 2000 1000 / 1000 NS Inj 1,000 ML @ 100 mls/hr IV 2000 / 2000 1000 / 1000 .CONT .Q10H [facility] Rx#:[id number] Oral 500 / 500 200 / 200 Anesthesia Amount 200 / 200 Other: # Voids 2 3 Date of Last Bowel Movement 12/31/17 # Bowel Movements 1 Narrative: Gen.: No acute distress Head: Normocephalic. Atraumatic. EENT: Pupils equal round and reactive to light. Nose without drainage. Airway intact. Throat without injection. Cardiovascular: Regular rate and rhythm. No murmurs, rubs or gallops. Respiratory: Lungs clear to auscultation bilaterally. No wheezes or rhonchi. Abdomen: Soft, tender to palpation,latanya right lower quadrant, nondistended. No peritoneal signs. Musculoskeletal: No gross deformities. No edema. Skin: No obvious rashes or erythema. Neuro: Sensory and motor grossly intact. Cranial nerves II through XII grossly intact. Results - Labs CBC & Chem 7: 12/31/17 05:56 12/31/17 05:56 Laboratory Results - last 24 hr 12/31/17 12:49 Carcinoembryonic Ag 3.3 - Imaging Abdomen/Pelvis CT 12/29/17 21:21 CONCLUSION: 1. Distention of the proximal colon to the distal transverse with a discrete transition at the level of the splenic flexure. 2. There is a short segment of diffuse mural thickening at the splenic flexure. Findings could represent a focal colitis or possibly a carcinoma forming an apple core lesion. With the abrupt transition, I favor the latter. Colonoscopy is recommended for further evaluation. - Procedures Date of procedure: 12/31/17 Pre-op diagnosis: Abdominal pain, abnormal findings on CT suggestive of colon lesion EGD followed by an incomplete colonoscopy to the sigmoid region due to poor prep IMPRESSION: Normal EGD possibly slightly dilated duodenum Incomplete colonoscopy poor prep PLAN: Obtain CEA Continue with prepping and repeat colonoscopy in a.m. Anesthesia: [facility] [place] Surgeon: Lul Gibbons Assessment and Plan - Plan Mr. Madrid is a 37-year-old male with no significant past medical history presents to the emergency department for evaluation of abdominal pain. CT abd/ pelvis shows large bowel obstruction and possible mass. GI consulted. EGD/ Colonoscopy was done on 12/31/2017 and again Colonoscopy on 01/01/2018. Colonoscopy showed a obstructing colonic mass in the distal transverse colon. Colorectal surgery was consulted. Distal transverse colon mass -Status post colonoscopy. Patient is waiting for colorectal surgery evaluation. -Continue acetaminophen. If needed we can add other pain medications. Hypertension -Blood pressure in the 140s and 150s systolic. -We will monitor to see if he needs any antihypertensive medications. Full code. Ambulation, SCDs.
[2018-01-01] MEDS ORDERED: Lidocaine PF 1% Inj 5 ML Syringe OTHER ONE (11:30)
--- NOTE | 2018-01-01 12:02 | P.DIET ---
Nutritional Evaluation Type of nutrition evaluation: initial Nutrition consult regarding: Diet Evaluation Nutrition screening: Weight Loss > 10 lbs Subjective Subjective Comments: Pt scheduled for colonoscopy in am. Pt currently NPO, was on clear liquid diet previously (12/31). Objective - Diagnosis large bowel obstruction - Objective Body Mass Index: 20.78 % IBW: 87 (IBW = 166lb) Body Weight Used for Calculations: Actual Energy Needs - Lower Range (kCal/kg): 25 Energy Needs - Upper Range (kCal/kg): 30 Lower Limit kCal/kg (kCals): 1,643 Upper Limit kCal/kg (kCals): 1,971 Lower Limit Protein Factor (Grams per Kg): 1.1 Upper Limit Protein Factor (Grams per Kg): 1.3 Lower Protein Needs (Protein): 72 Upper Protein Needs (Protein): 85 Fluid Factor (ml/kg): 30 Estimated Fluid Needs (ml): 1,971 Dietitian Reviewed in Medical Record: Current diet, Curent medications, Intake & Output, Labs, Medical history Diet Order: NPO Oral Diet Intake Amount: Poor <50% Speech Therapy Recommendations: No Wound Care Note: Lesion: L/R knee, L lao, R abd Assessment Assessment: Pt at nutritional risk r/t reported unplanned wt loss. Pt currently NPO d/t colonoscopy. Will assess pts nutritional needs for a PO supplement as appropriate after pt is able to resume PO intake. Labs reviewed. Monitor NPO status. Dietitian following. Recommendations: 1. Monitor NPO status 2. Will assess pts nutritional needs for a PO supplement as appropriate 3. Dietitian following. Dietitian to Monitor: Lab values, Intake & Output, Diet tolerance, Weight change , PO Intake, Diet advancement, Medical course
--- NOTE | 2018-01-01 12:34 | P.PCN ---
Date of procedure: 01/01/18 Pre-op diagnosis: Abdominal pain, abnormal findings on CT Procedure: PROCEDURE PERFORMED Colonoscopy with biopsy PROCEDURE: The procedure, risks and benefits were discussed with Patient/POA and informed consent was obtained. Anesthesia sedated Patient with Diprivan. Patient was placed in the left lateral decubitus position. Colonoscopy: The Pentax videoscope was introduced through the rectum and advanced to the distal transverse colon. Retroflexion was performed in the rectum. Colonic prep was good FINDINGS: Once the scope was advanced to the splenic flexure and turned into the distal transverse colon there was an obstructing mass I was unable to advance the scope beyond this point biopsies were taken from this area it is probably a malignancy although I did not get a good look at it because of the angulation otherwise the rest of the colon was unremarkable so is retroflexion and rectal examination ESTIMATED BLOOD LOSS: None SPECIMENS REMOVED: Colon biopsy COMPLICATIONS: None IMPRESSION: Obstructing colon mass in the distal transverse colon PLAN: Colorectal surgery have been contacted patient will require surgical resection Anesthesia: SHERRI Surgeon: Lul Gibbons Condition: stable Disposition: floor
[2018-01-01] MEDS ORDERED: Influenza (Quadrivalent) Vaccine 0.5 ML Syringe IM ONE (16:00)
--- NOTE | 2018-01-01 18:39 | XR ---
EXAM DATE: 01/01/2018 6:23 PM EDT AGE/SEX: 37 years / Male INDICATIONS: Evaluate for colon obstruction CLINICAL DATA: This is the patient's initial encounter. Patient reports that signs and symptoms have been present for 3 days and indicates a pain score of 0/10. MEDICAL/SURGICAL HISTORY: None. None. COMPARISON: No prior exams available for comparison. FINDINGS: There is mild gaseous distention of bowel with some air-fluid levels. The transverse colon measures u p to about 5.9 cm in diameter. No free air. No acute bony abnormalities. CONCLUSION: Nonspecific mild gaseous distention of small and large bowel most characteristic of an ileus. Electronically signed by: Darren Westbrook MD 01/01/2018 6:37 PM EDT
[2018-01-01] MEDS: REMOVE OLD NICODERM (NICOTINE) PATCH T-DERMAL SCH (20:20)
[2018-01-02] MEDS: Sod Chloride 0.9% Inj 1,000 ML IV.CONT SCH ×2 (00:35→13:13)
--- NOTE | 2018-01-02 10:08 | P.PN ---
Subjective Interval history: Follow-up for a colonic mass. Patient is currently resting in bed. Denies any chest pain, shortness of breath, fever or chills. He is scheduled for surgical intervention today at 4:30 PM. Physical Exam Vital signs: Vital Signs 01/01/18 12:20 01/01/18 12:49 01/01/18 16:00 Temperature 97.8 F 98.0 F 98.6 F Pulse Rate 60 62 78 Respiratory Rate 14 20 17 Blood Pressure 143/88 H 152/80 H 140/86 Pulse Oximetry 100 100 98 01/01/18 20:00 01/02/18 00:00 01/02/18 04:00 Temperature 98.4 F 98.6 F 98.3 F Pulse Rate 85 82 81 Respiratory Rate 18 20 20 Blood Pressure 140/81 139/80 142/90 H Pulse Oximetry 100 100 99 01/02/18 08:00 Temperature 98.3 F Pulse Rate 75 Respiratory Rate 16 Blood Pressure 133/90 Pulse Oximetry 99 Intake & Output 01/01/18 01/02/18 01/02/18 18:59 06:59 18:59 Intake Total 1400 / 1400 480 / 480 Balance 1400 / 1400 480 / 480 Intake: IV 1000 / 1000 NS Inj 1,000 ML @ 100 mls/hr IV 1000 / 1000 .CONT .Q10H [facility] Rx#:[id number] Oral 480 / 480 Anesthesia Amount 400 / 400 Other: # Voids 1 4 # Urine Diapers 2 Date of Last Bowel Movement 01/01/18 01/01/18 Narrative: Gen.: No acute distress Head: Normocephalic. Atraumatic. EENT: Pupils equal round and reactive to light. Nose without drainage. Airway intact. Throat without injection. Cardiovascular: Regular rate and rhythm. No murmurs, rubs or gallops. Respiratory: Lungs clear to auscultation bilaterally. No wheezes or rhonchi. Abdomen: Soft, tender to palpation,latanya right lower quadrant, nondistended. No peritoneal signs. Musculoskeletal: No gross deformities. No edema. Skin: No obvious rashes or erythema. Neuro: Sensory and motor grossly intact. Cranial nerves II through XII grossly intact. Results - Labs CBC & Chem 7: 12/31/17 05:56 12/31/17 05:56 - Imaging Impressions Abdomen X-Ray 10/25/18 17:44 CONCLUSION: Nonspecific mild gaseous distention of small and large bowel most characteristic of an ileus. - Procedures 12/31/2017 The esophagus this appeared to be unremarkable and within normal limits The stomach this to appear to be unremarkable and within normal limits The duodenum also appeared to be unremarkable within normal limits possible slight dilation of the duodenal lumen but otherwise unremarkable Little could be seen as far as the colonic mucosa due to poor prep the procedure was aborted 01/01/2018 Obstructing colon mass in the distal transverse colon Assessment and Plan - Plan Mr. Madrid is a 37-year-old male with no significant past medical history presents to the emergency department for evaluation of abdominal pain. CT abd/ pelvis shows large bowel obstruction and possible mass. GI consulted. EGD/ Colonoscopy was done on 12/31/2017 and again Colonoscopy on 01/01/2018. Colonoscopy showed a obstructing colonic mass in the distal transverse colon. Colorectal surgery was consulted. Distal transverse colon mass -Status post colonoscopy. Colorectal surgery today. -Continue acetaminophen. Hypertension -BP 130s to 160s, possibly due to pain. -Will consider CCB if needed for BP control. Tobacco abuse - continue Nicotine patch. Full code. Ambulation, SCDs.
[2018-01-02] MEDS ORDERED: Chlorhexidine Gluconate 2% 1 Pack (2 Cloths) TOPICAL ONE (13:22)
[2018-01-02] MEDS ORDERED: Metoprolol Tartrate 25 MG Tablet PO ONE (13:22)
[2018-01-02] MEDS ORDERED: Sodium Chlor 0.9% Inj 500 ML IV.SIG SCH (14:00)
--- NOTE | 2018-01-02 16:10 | P.PNGI ---
Subjective Interval history: Resting in the bed mild anxiety but no obvious nausea vomiting or abdominal pain <Julia Perez - Last Filed: 01/02/18 16:10> Physical Exam Vital signs: Vital Signs 01/01/18 20:00 01/02/18 00:00 01/02/18 04:00 Temperature 98.4 F 98.6 F 98.3 F Pulse Rate 85 82 81 Respiratory Rate 18 20 20 Blood Pressure 140/81 139/80 142/90 H Pulse Oximetry 100 100 99 01/02/18 08:00 01/02/18 12:00 Temperature 98.3 F 98.3 F Pulse Rate 75 71 Respiratory Rate 16 18 Blood Pressure 133/90 162/98 H Pulse Oximetry 99 100 Intake & Output 01/01/18 01/02/18 01/02/18 18:59 06:59 18:59 Intake Total 2400 / 2400 480 / 480 Balance 2400 / 2400 480 / 480 Intake: IV 1999 NS Inj 1,000 ML @ 100 mls/hr IV 1999 .CONT .Q10H [facility] Rx#:[id number] Oral 480 / 480 Anesthesia Amount 400 / 400 Other: # Voids 1 4 # Urine Diapers 2 Date of Last Bowel Movement 01/01/18 01/01/18 - Constitutional mild distress (Stressors to upcoming surgery this p.m.) - Routine HEENT Exam Head: Present: normocephalic ENT: Present: mucous membranes moist - Routine Cardiovascular Exam Present: S1, S2 - Routine Abdominal Exam Present: soft (Soft bowel sounds, noticeable abdominal nodule right mid lower quadrant) <Julia Perez - Last Filed: 01/02/18 16:10> Vital signs: Vital Signs 01/01/18 20:00 01/02/18 00:00 01/02/18 04:00 Temperature 98.4 F 98.6 F 98.3 F Pulse Rate 85 82 81 Respiratory Rate 18 20 20 Blood Pressure 140/81 139/80 142/90 H Pulse Oximetry 100 100 99 01/02/18 08:00 01/02/18 12:00 01/02/18 16:00 Temperature 98.3 F 98.3 F 98.3 F Pulse Rate 75 71 72 Respiratory Rate 16 18 20 Blood Pressure 133/90 162/98 H 155/99 H Pulse Oximetry 99 100 97 Intake & Output 01/01/18 01/02/18 01/02/18 18:59 06:59 18:59 Intake Total 2400 / 2400 480 / 480 Balance 2400 / 2400 480 / 480 Intake: IV 1999 NS Inj 1,000 ML @ 100 mls/hr IV 1999 .CONT .Q10H [facility] Rx#:[id number] Oral 480 / 480 Anesthesia Amount 400 / 400 Other: # Voids 1 4 # Urine Diapers 2 Date of Last Bowel Movement 01/01/18 01/01/18 <Lul Gibbons - Last Filed: 01/02/18 18:55> Results - Labs CBC & Chem 7: 12/31/17 05:56 12/31/17 05:56 - Imaging Impressions Abdomen X-Ray 01/01/18 17:44 CONCLUSION: Nonspecific mild gaseous distention of small and large bowel most characteristic of an ileus. - Procedures Date of procedure: 12/31/17 Pre-op diagnosis: Abdominal pain, abnormal findings on CT suggestive of colon lesion EGD followed by an incomplete colonoscopy to the sigmoid region due to poor prep IMPRESSION: Normal EGD possibly slightly dilated duodenum Incomplete colonoscopy poor prep PLAN: Obtain CEA Continue with prepping and repeat colonoscopy in a.m. Anesthesia: [facility] Surgeon: Lul Gibbons <Julia Perez - Last Filed: 01/02/18 16:10> - Labs CBC & Chem 7: 12/31/17 05:56 12/31/17 05:56 <Lul Gibbons - Last Filed: 01/02/18 18:55> Assessment and Plan (1) Abdominal pain Status: Acute Code(s): R10.9 - Unspecified abdominal pain - Plan Abdominal pain/apple core lesion Patient presents 1 week history of generalized abdominal pain with bloating and nausea. History of same since 2013. (12/29) CT abdomen and pelvis revealed the following findings :. Distention of the proximal colon to the distal transverse with a discrete transition at the level of the splenic flexure. There is a short segment of diffuse mural thickening at the splenic flexure. Findings could represent a focal colitis or possibly a carcinoma forming an apple core lesion. WBC 11.2 hemoglobin 12.7 hematocrit 39.2 total bilirubin 0.6 AST 14 ALT 19 alk phos 65 lipase 50 01/02/2018 patient is resting in the bed, girlfriend in room, mild anxiety, Plan for colon resection today approximately [address] Ortiz. Patient is currently n.p.o. discussed plan of care and answered all questions from patient and friend. Currently denies any nausea vomiting or abdominal pain at rest. Supportive care to patient. Labs reviewed which include hemoglobin 13.8 no current obvious bleeding. Will follow up post surgery as needed or on an outpatient basis. Status post colonoscopy on 01/01/2018 with findings including obstructing colon mass in the distal transverse colon. Colorectal surgeon consult done Patient was seen per myself and Dr. Gibbons, note was written on his behalf <Julia Perez - Last Filed: 01/02/18 16:10> (1) Abdominal pain Status: Acute Code(s): R10.9 - Unspecified abdominal pain - Plan Patient seen and examined Agree with above H&P Monitor labs Continue with current supportive care Patient going for partial colectomy due to obstructing mass Case was discussed with Dr. Ortiz We will defer to colorectal surgery service for further care on this gentleman We will sign off <Lul Gibbons - Last Filed: 01/02/18 18:55>
[2018-01-02] MEDS ORDERED: Bupivacaine 0.5% Inj 50 ML MDV Vial ONE (16:11)
[2018-01-02] MEDS ORDERED: ceFAZolin 1 GM Premix Inj 1 GM/50 ML FROZ.PIGGY IV.SIG ONE (16:19)
[2018-01-02] MEDS ORDERED: Labetalol HCl Inj 100 MG/20 ML Vial IV.CONT ONE (16:45)
[2018-01-02] MEDS ORDERED: Phenylephrine/NS 1000 MCG/10ML Syringe IV.PUSH ONE (16:45)
[2018-01-02] MEDS ORDERED: Lidocaine PF 1% Inj 5 ML Syringe OTHER ONE (16:45)
[2018-01-02] MEDS ORDERED: Glycopyrrolate Inj 1 MG/5 ML Syringe IV.PUSH ONE (16:45)
[2018-01-02] MEDS ORDERED: Neostigmine Inj 5 MG/5 ML Syringe IV.PUSH ONE (16:45)
[2018-01-02] MEDS ORDERED: Acetaminophen 325 MG Tablet PO PRN (18:44)
[2018-01-02] MEDS ORDERED: Potassium Chlor 20 mEq Premix 20 MEQ/100 ML PIGGYBACK IV.SIG PRN (18:44)
[2018-01-02] MEDS ORDERED: Ketorolac Inj 30 MG/ML (IVP) Vial IV.PUSH PRN (18:44)
[2018-01-02] MEDS ORDERED: Potassium Chlor 40 mEq Premix 40 MEQ/100 ML PIGGYBACK IV.SIG PRN (18:44)
[2018-01-02] MEDS ORDERED: Naloxone Inj 0.4 MG/ML Vial IV.PUSH PRN (18:44)
[2018-01-02] MEDS ORDERED: fentaNYL Citrate Inj 100 MCG/2 ML Ampul ONE (19:08)
[2018-01-02] MEDS ORDERED: KCL 20 mEq/D5W/NaCl 0.45% Inj 1,000 ML ONE (19:13)
[2018-01-02] MEDS ORDERED: Ketorolac Inj 30 MG/ML (IVP) Vial ONE (19:13)
[2018-01-02] MEDS ORDERED: Morphine Inj 30 MG/30 ML PCA.VIAL PCA ONE (19:13)
[2018-01-02] MEDS ORDERED: *morphine SULFATE 10 MG/ML PERIprocedure ONLY ONE (19:21)
[2018-01-02] MEDS ORDERED: hydrALAZINE HCl Inj 20 MG/ML Vial ONE (19:28)
[2018-01-02] MEDS: Morphine Inj 30 MG/30 ML PCA.VIAL PCA PRN (19:37)
[2018-01-02] MEDS ORDERED: hydrALAZINE HCl Inj 20 MG/ML Vial IV.PUSH ONE (19:45)
[2018-01-02] MEDS ORDERED: hydrALAZINE HCl Inj 20 MG/ML Vial IV.PUSH PRN (20:00)
[2018-01-02] MEDS: KCL 20 mEq/D5W/NaCl 0.9% Inj 1,000 ML IV.CONT SCH (20:14)
[2018-01-02] MEDS: REMOVE OLD NICODERM (NICOTINE) PATCH T-DERMAL SCH (23:42)
[2018-01-02] MEDS: ceFAZolin Inj 1,000 MG in Sodium Chlor 0.9% Inj 100 ML IV.SIG SCH (23:42)
[2018-01-03 04:31] LABS: Baso % (Auto) 0.2 % (0.0-2.0); Hematocrit 40.4 % (39.0-51.0); Hemoglobin 13.4 gm/dL (13.0-17.0); Lymph # (Auto) 0.3 th/mm3 (1.0-4.8); Lymph % (Auto) 1.3 % (9.0-44.0); Mean Corpuscular HGB Conc 33.2 % (32.0-36.0); Mean Corpuscular Hemoglobin 28.2 pg (27.0-34.0); Mean Platelet Volume 7.8 fL (7.0-11.0); Mono % (Auto) 4.6 % (0.0-8.0); Neut # (Auto) 19.4 th/mm3 (1.8-7.7); Neut % (Auto) 93.9 % (16.0-70.0); Platelet Count 344 th/mm3 (150-450); Red Blood Count 4.75 mil/mm3 (4.50-5.90); Red Cell Distribution Width 15.4 % (11.6-17.2); White Blood Count 20.6 th/mm3 (4.0-11.0)
[2018-01-03 05:02] LABS: Calcium 8.6 mg/dL (8.5-10.1); Carbon Dioxide 30.7 meq/L (21.0-32.0); Potassium 4.8 meq/L (3.5-5.1)
[2018-01-03] MEDS: Morphine Inj 30 MG/30 ML PCA.VIAL PCA PRN ×2 (06:17→17:00)
[2018-01-03] MEDS: KCL 20 mEq/D5W/NaCl 0.9% Inj 1,000 ML IV.CONT SCH ×3 (06:21→21:48)
[2018-01-03] MEDS: ceFAZolin Inj 1,000 MG in Sodium Chlor 0.9% Inj 100 ML IV.SIG SCH ×2 (06:27→11:15)
[2018-01-03] MEDS: Pantoprazole Inj 40 MG Vial IV.PUSH SCH (08:20)
--- NOTE | 2018-01-03 08:30 | P.PN ---
Subjective Interval history: 01/02: Patient with colonic mass found on the Distal transverse Colon. He is scheduled for surgical intervention today at 4:30 PM. 01/03: Seen in his bedroom, status post surgery by Doctor Darren Ortiz, with diagnosis of Obstructing lesion of the left Transverse Colon status post Exploratory laparotomy with subtotal abdominal Colectomy. no nausea, vomit or diarrhea. Physical Exam Vital signs: Vital Signs 01/02/18 12:00 01/02/18 16:00 01/02/18 18:58 Temperature 98.3 F 98.3 F 97.6 F Pulse Rate 71 72 62 Respiratory Rate 18 20 17 Blood Pressure 162/98 H 155/99 H 160/103 H Pulse Oximetry 100 97 100 01/02/18 19:00 01/02/18 19:15 01/02/18 19:30 Temperature Pulse Rate 61 58 L 56 L Respiratory Rate 10 L 10 L 11 L Blood Pressure 175/104 H 188/111 H 168/101 H Pulse Oximetry 100 100 100 01/02/18 19:45 01/02/18 20:00 01/02/18 20:57 Temperature 97.4 F L 96.1 F L Pulse Rate 57 L 62 70 Respiratory Rate 11 L 15 16 Blood Pressure 177/108 H 165/93 H 157/89 H Pulse Oximetry 100 100 01/02/18 21:00 01/02/18 23:40 01/03/18 00:00 Temperature 97.8 F Pulse Rate 67 85 Respiratory Rate 16 16 Blood Pressure 180/103 H Pulse Oximetry 01/03/18 04:00 01/03/18 07:55 01/03/18 07:57 Temperature 97.8 F 98.3 F Pulse Rate 68 Respiratory Rate 16 17 Blood Pressure 168/97 H 172/98 H 165/95 H Pulse Oximetry 99 Intake & Output 01/02/18 01/03/18 01/03/18 18:59 06:59 18:59 Intake Total 5035 / 5035 130 / 130 Output Total 2475 / 2475 Balance 2560 / 2560 130 / 130 Weight 85.8 kg Intake: IV 3010 / 3010 110 / 110 D5W/NS + KCL 20 mEq Inj 1,000 1800 / 1800 ML @ 150 mls/hr IV.CONT .Q6H40M [facility] Rx#:[id number] NS Inj 1,000 ML @ 100 mls/hr IV 100 / 100 .CONT .Q10H [facility] Rx#:[id number] Ancef Inj 1,000 MG In NS Inj 110 / 110 110 / 110 100 ML @ 220 mls/hr IV.SIG Q6H [facility] Rx#:[id number] Flagyl 500 MG Inj 100 ML @ 200 100 / 100 mls/hr IV.SIG Q8H [facility] Rx#: [id number] Oral 25 / 25 20 / 20 Anesthesia Amount 1999 Output: Estimated Blood Loss 100 / 100 Urine Amount (Catheter) 2374 237 Indwelling Urethral Catheter 2374 Other: Date of Last Bowel Movement 01/01/18 Narrative: Gen.: No acute distress Head: Normocephalic. Atraumatic. EENT: Pupils equal round and reactive to light. Cardiovascular: Regular rate and rhythm. No murmurs, rubs or gallops. Respiratory: Lungs clear to auscultation bilaterally. No wheezes or rhonchi. Abdomen: dressed surgical wound. Musculoskeletal: No gross deformities. No edema. Skin: No obvious rashes or erythema. Neuro: Sensory and motor grossly intact. Cranial nerves II through XII grossly intact. - Urinary Catheter Management Indwelling Urethral Catheter Cath placed during this visit: yes Reason for continuing: Other continuation reason Insertion date: 01/02/18 Results - Labs CBC & Chem 7: 01/03/18 04:02 01/03/18 04:02 Laboratory Results - last 24 hr 01/03/18 01/03/18 04:02 04:02 WBC 20.6 H RBC 4.75 Hgb 13.4 Hct 40.4 MCV 85.0 MCH 28.2 MCHC 33.2 RDW 15.4 Plt Count 344 MPV 7.8 Neut % (Auto) 93.9 H Lymph % (Auto) 1.3 L [place] % (Auto) 4.6 Eos % (Auto) 0.0 Baso % (Auto) 0.2 Neut # (Auto) 19.4 H Lymph # (Auto) 0.3 L Nicholas # (Auto) 1.0 H Eos # (Auto) 0.0 Baso # (Auto) 0.0 WBC Differential . Differential Comment Auto diff final Sodium 137 Potassium 4.8 Chloride 100 Carbon Dioxide 30.7 Anion Gap 6 BUN 7 Creatinine 1.11 Estimated GFR 75 L Random Glucose 161 H Calcium 8.6 - Imaging Abdomen/Pelvis CT 12/29/17 21:21 CONCLUSION: 1. Distention of the proximal colon to the distal transverse with a discrete transition at the level of the splenic flexure. 2. There is a short segment of diffuse mural thickening at the splenic flexure. Findings could represent a focal colitis or possibly a carcinoma forming an apple core lesion. With the abrupt transition, I favor the latter. Colonoscopy is recommended for further evaluation. Abdomen X-Ray 01/01/18 17:44 CONCLUSION: Nonspecific mild gaseous distention of small and large bowel most characteristic of an ileus. - Procedures 12/31/2017 The esophagus this appeared to be unremarkable and within normal limits The stomach this to appear to be unremarkable and within normal limits The duodenum also appeared to be unremarkable within normal limits possible slight dilation of the duodenal lumen but otherwise unremarkable Little could be seen as far as the colonic mucosa due to poor prep the procedure was aborted 01/01/2018 Obstructing colon mass in the distal transverse colon Surgeon: Lul Gibbons 01/03: With diagnosis of Obstructing lesion of the left Transverse Colon status post Exploratory laparotomy with subtotal abdominal Colectomy. Assessment and Plan - Plan Mr. Madrid is a 37-year-old male with no significant past medical history presents to the emergency department for evaluation of abdominal pain. CT abd/ pelvis shows large bowel obstruction and possible mass. GI consulted. EGD/ Colonoscopy was done on 12/31/2017 and again Colonoscopy on 01/01/2018. Colonoscopy showed a obstructing colonic mass in the distal transverse colon. Colorectal surgery was consulted. Obstructing lesion of the left Transverse Colon status post Exploratory laparotomy with subtotal abdominal Colectomy. by doctor Darren Ortiz 01/03/18. Hypertension -BP 130s to 160s, possibly due to pain. -Will consider CCB if needed for BP control. Tobacco abuse - continue Nicotine patch. Full code. Ambulation, SCDs. Follow laboratory in am tomorrow. Code Status: Full code. Discussed Condition With: Patient, Nurse Miss Ayala and his Girlfriend in the room. Discharge Planning: Once cleared by specialists.
--- NOTE | 2018-01-03 09:40 | P.PNCS ---
Subjective Colorectal Surgery Post Op Day #: 1 Interval history: afebrile, VSS UO good Objective Result Diagrams: 01/03/18 04:02 01/03/18 04:02 Objective Remarks: PE alert Abd - soft, flat, wound dry Assessment and Plan - Plan Imp: stable post-op OOB decr IVF tx to floor
--- NOTE | 2018-01-03 10:59 | MB ---
cc: Darren Ortiz MD, Andrew H MD DATE: 01/03/2018 REASON FOR CONSULTATION: Abdominal pain, possible colonic obstruction. HISTORY OF PRESENT ILLNESS: Mr. Madrid is a 37-year-old male who has had abdominal discomfort and GI problems on and off for many years. The patient presented to the emergency room 2 days prior to today with 2-3 days of severe sharp epigastric discomfort. The pain actually got worse the day he came to the emergency room. He has had multiple attacks of emesis and has had decreased oral intake with constant nausea. He normally moves his bowels fairly regularly, but had not had a bowel movement for about 5 days prior to admission. Reports very poor oral intake and about an 8-10 pound weight loss in the last week or so. Denies any significant bleeding of the rectum. No melena. Denies any shaking chills or fever. The patient has had no previous abdominal surgery. The patient was evaluated in the emergency room and found to have obstruction of his colon in the region of the splenic flexure consistent with a mass. Dr. Gibbons performed a colonoscopy identifying an obstruction around the splenic flexure, which could not be passed and he felt was consistent with a possible carcinoma. Since colonoscopy, the patient has had minimal output from his rectum. He has had no more nausea or vomiting, but has not had much oral intake. Please see his history and physical and multiple consultations for more complete past medical and surgical history. PHYSICAL EXAMINATION: GENERAL: A very pleasant, muscular male in no acute distress. HEENT: Remarkable for pink, dry membranes. Nonicteric sclerae. NECK: Supple without gross adenopathy. CHEST: Relatively clear, symmetrical expanding. HEART: Regular rhythm. ABDOMEN: Fairly soft. A little tympany but not really distended. Normal bowel sounds with tenderness in the left mid abdomen. No real masses appreciated. No obvious hernias. EXTREMITIES: Show no cyanosis or clubbing and no pedal edema. LABORATORY STUDIES: Hemoglobin was 12.7, platelet count was 423,000. Electrolytes are unremarkable with a BUN of 11, creatinine of 0.99. Normal liver function tests. CEA level was 3.6. CT scan was reviewed showing distention of the proximal colon with a transition point in the distal transverse colon with mural thickening consistent with either colitis or possibly an apple core-type tumor. No metastatic disease was seen in the liver or lymph nodes. IMPRESSION: A 37-year-old male with evidence of colonic obstruction at the region of the splenic flexure. Dr. Gibbons's impression was extremely tight tumor, possibly carcinoma. Discussed at great length with the patient. He does seem to have decompressed after the limited bowel preparation. I recommended we proceed with exploratory laparotomy and resection of the splenic flexure lesion. The possibility of a cancer versus inflammatory process was discussed in detail with the patient and potential for reanastomosis versus temporary diversion were all reviewed. The patient will continue n.p.o. pending the surgical scheduling later this afternoon. MD ANNAMARIA Castillo/nilesh , 09:53 AM , 10:02 AM
--- NOTE | 2018-01-03 11:14 | MP ---
cc: Darren Ortiz MD DATE OF OPERATION: 01/02/2018 PREOPERATIVE DIAGNOSIS: Obstruction of the splenic flexure of the colon. PROCEDURE: Exploratory laparotomy with subtotal abdominal colectomy. POSTOPERATIVE DIAGNOSIS: Obstructing lesion of the left transverse colon. SURGEON: Darren Ortiz MD TURNING MACHINE SET UP OPERATOR: Filipe Motta MD. DETAILS OF PROCEDURE: The patient was placed in the supine position. After adequate general anesthesia, his legs were placed in the universal stirrups and supported appropriately. The abdomen and perineum was then prepped with Betadine solution and draped in the usual sterile fashion. With Dr. Motta's assistance, the abdomen was opened through a midline incision. Exploration revealed a rock hard mass in the distal part of the transverse colon, which was stuck very densely adherent to the abdominal parietal peritoneum. It was not easily . The proximal colon was quite softly distended with stool and gas with some signs of chronic obstructive changes to the bowel. The distal bowel was quite redundant with several loops and redundancy in the sigmoid colon with some abnormal congenital adhesions. These were all freed up and the colon straightened. The small bowel was run from ligament of Treitz down to the ileocecal valve and felt to be pretty unremarkable. The liver and gallbladder were normal. The stomach and duodenum were normal. Great vessels were of normal caliber and fairly soft to palpation. First, the mass was removed from the abdominal wall, taking the parietal peritoneum and some of the superficial rectus muscle with the specimen. The sigmoid colon was then mobilized medially by dividing along the white line of Toldt. The left ureter was identified and carefully preserved. Dissection then proceeded up to the left gutter, freeing the left colon off the retroperitoneum, taking down the splenic flexure and entering the lesser sac. The tumor process was also fairly densely adherent to the gastrocolic omentum in the region of the greater curvature. The gastroepiploic vessel had to be taken in the region of adherence, but the tumor did not appear to invade the muscle layer of the stomach. After freeing the mass off the greater curvature it was felt that due to the chronic nature of the obstruction, that the remainder of the transverse colon and right colon should be taken with the specimen enabling any ileal descending anastomosis. In that regard, the right colon was mobilized medially by dividing along the white line of Toldt. The right ureter was identified and carefully preserved. Dissection proceeded up, taking down attachments to the hepatic flexure, freeing the rest of the omentum off the transverse colon. The bowel was then divided in the terminal ileum using the HIRAM stapling device. The intervening mesenteric vessels taken between Jenn's, obtaining hemostasis with Vicryl ties. The left colic vessels were taken, but the pedicle for the superior hemorrhoidal vessels were able to be preserved. After distal margin was obtained, the bowel was divided and the descending colon, again using the HIRAM stapling device. The specimen was removed. Bowel continuity was then restored by firing the HIRAM stapler across the antimesenteric ends of the bowel, closed the enterotomy with a TA 60 stapler. 3-0 Vicryl crotch suture was placed. The mesenteric defect was left open. The abdomen was then irrigated copiously with normal saline. Adequate hemostasis achieved. Hemostasis achieved at all sites. The abdominal incision was then closed anatomically, reapproximating the midline fascia with running #1 PDS suture. The subcutaneous tissue was irrigated copiously and the skin closed with a running subcuticular Vicryl suture. Wound area washed with normal saline and dried, sterile dressing of Telfa and gauze applied. The patient tolerated the procedure quite well and was brought to the recovery room in stable condition. Sponge and needle count were correct at the end of the procedure. Darren Ortiz MD [facility] , 09:59 AM , 10:08 AM
[2018-01-03] MEDS: REMOVE OLD NICODERM (NICOTINE) PATCH T-DERMAL SCH (21:27)
[2018-01-03] MEDS: Heparin - SQ 10,000 UNITS/ML Vial SQ SCH (21:47)
[2018-01-04] MEDS: Morphine Inj 30 MG/30 ML PCA.VIAL PCA PRN ×2 (03:34→21:35)
[2018-01-04 07:03] LABS: Baso % (Auto) 0.2 % (0.0-2.0); Eos # (Auto) 0.1 th/mm3 (0.0-0.4); Eos % (Auto) 0.5 % (0.0-4.0); Hematocrit 40.3 % (39.0-51.0); Lymph # (Auto) 0.9 th/mm3 (1.0-4.8); Lymph % (Auto) 6.7 % (9.0-44.0); Mean Corpuscular HGB Conc 32.2 % (32.0-36.0); Mean Corpuscular Hemoglobin 27.8 pg (27.0-34.0); Mean Corpuscular Volume 86.2 fL (80.0-100.0); Mean Platelet Volume 8.1 fL (7.0-11.0); Mono # (Auto) 1.4 th/mm3 (0.0-0.9); Mono % (Auto) 10.4 % (0.0-8.0); Neut # (Auto) 10.9 th/mm3 (1.8-7.7); Neut % (Auto) 82.2 % (16.0-70.0); Platelet Count 300 th/mm3 (150-450); Red Blood Count 4.67 mil/mm3 (4.50-5.90); Red Cell Distribution Width 15.7 % (11.6-17.2); White Blood Count 13.2 th/mm3 (4.0-11.0)
[2018-01-04 07:29] LABS: Calcium 8.2 mg/dL (8.5-10.1); Carbon Dioxide 31.2 meq/L (21.0-32.0); Potassium 3.8 meq/L (3.5-5.1)
[2018-01-04] MEDS: Pantoprazole Inj 40 MG Vial IV.PUSH SCH (08:36)
[2018-01-04] MEDS: Heparin - SQ 10,000 UNITS/ML Vial SQ SCH ×3 (08:37→21:34)
[2018-01-04] MEDS: KCL 20 mEq/D5W/NaCl 0.9% Inj 1,000 ML IV.CONT SCH ×3 (11:09→21:35)
--- NOTE | 2018-01-04 11:12 | P.PNIM ---
Subjective Interval history: The pt was resting comfortably in bed. He said his pain was a 1 or a 2 out of 10. He had no acute complaints. Family at the bedside. Physical Exam Vital signs: Vital Signs 01/03/18 12:00 01/03/18 15:00 01/03/18 18:00 Temperature 98.5 F 98.7 F 98.5 F Pulse Rate 81 73 78 Respiratory Rate 17 15 20 Blood Pressure 162/71 H 190/98 H Pulse Oximetry 97 96 99 01/03/18 20:00 01/04/18 00:00 01/04/18 01:17 Temperature 98.0 F 98.6 F Pulse Rate 75 77 Respiratory Rate 17 18 18 Blood Pressure 168/81 H 168/91 H Pulse Oximetry 97 96 01/04/18 04:00 01/04/18 04:04 01/04/18 08:00 Temperature 98.8 F 99.3 F Pulse Rate 85 93 H Respiratory Rate 16 18 16 Blood Pressure 167/87 H 165/92 H Pulse Oximetry 97 97 Intake & Output 01/03/18 01/04/18 01/04/18 18:59 06:59 18:59 Intake Total 580 / 580 1000 / 1000 Output Total 1200 / 1200 Balance 580 / 580 -200 / -200 Weight 90 kg Intake: IV 320 / 320 1000 / 1000 D5W/NS + KCL 20 mEq Inj 1,000 1000 / 1000 ML @ 75 mls/hr IV.CONT .[id number] [facility] Rx#:[id number] Ancef Inj 1,000 MG In NS Inj 220 / 220 100 ML @ 220 mls/hr IV.SIG Q6H [facility] Rx#:[id number] Flagyl 500 MG Inj 100 ML @ 200 100 / 100 mls/hr IV.SIG Q8H [facility] Rx#: [id number] Oral 260 / 260 Output: Urine Amount (Catheter) 1200 / 1200 Indwelling Urethral Catheter 1200 / 1200 Narrative: General: No acute distress. Head: Normocephalic. Atraumatic. EENT: Pupils equal round and reactive to light. Cardiovascular: Regular rate and rhythm. No murmurs, rubs or gallops. Respiratory: Lungs clear to auscultation bilaterally. No wheezes or rhonchi. Abdomen: Binder in place. Nontender. Musculoskeletal: No gross deformities. No edema. Skin: No obvious rashes or erythema. Neuro: Sensory and motor grossly intact. Cranial nerves II through XII grossly intact. - Urinary Catheter Management Indwelling Urethral Catheter Cath placed during this visit: yes Reason for continuing: Other continuation reason Insertion date: 01/02/18 Results - Labs CBC & Chem 7: 01/04/18 06:09 01/04/18 06:09 Laboratory Results - last 24 hr 01/04/18 01/04/18 06:09 06:09 WBC 13.2 H RBC 4.67 Hgb 13.0 Hct 40.3 MCV 86.2 MCH 27.8 MCHC 32.2 RDW 15.7 Plt Count 300 MPV 8.1 Neut % (Auto) 82.2 H Lymph % (Auto) 6.7 L [place] % (Auto) 10.4 H Eos % (Auto) 0.5 Baso % (Auto) 0.2 Neut # (Auto) 10.9 H Lymph # (Auto) 0.9 L [place] # (Auto) 1.4 H Eos # (Auto) 0.1 Baso # (Auto) 0.0 WBC Differential . Differential Comment Auto diff final Sodium 139 Potassium 3.8 D Chloride 101 Carbon Dioxide 31.2 Anion Gap 7 BUN 9 Creatinine 1.03 Estimated GFR 81 L Random Glucose 116 H Calcium 8.2 L - Procedures 12/31/2017 The esophagus this appeared to be unremarkable and within normal limits The stomach this to appear to be unremarkable and within normal limits The duodenum also appeared to be unremarkable within normal limits possible slight dilation of the duodenal lumen but otherwise unremarkable Little could be seen as far as the colonic mucosa due to poor prep the procedure was aborted 01/01/2018 Obstructing colon mass in the distal transverse colon Surgeon: Lul Gibbons 01/03: With diagnosis of Obstructing lesion of the left Transverse Colon status post Exploratory laparotomy with subtotal abdominal Colectomy. Assessment and Plan - Plan Colonic mass Mr. Madrid is a 37-year-old male with no significant past medical history presents to the emergency department for evaluation of abdominal pain. CT abd/ pelvis shows large bowel obstruction and possible mass. GI consulted. EGD/ Colonoscopy was done on 12/31/2017 and again Colonoscopy on 01/01/2018. Colonoscopy showed a obstructing colonic mass in the distal transverse colon. Colorectal surgery was consulted. Obstructing lesion of the left transverse colon status post exploratory laparotomy with subtotal abdominal colectomy by doctor Darren Ortiz 01/03/18. -post-op care per CRS. -pain control as needed. -diet per surgery. -incentive spirometry. -follow pathology. Hypertension Likely exacerbated by pain. -pain control. -amlodipine 5 mg daily. Tobacco abuse The pt continues to smoke. -continue Nicotine patch. -cessation instruction. Leukocytosis Likely reactive. -follow CBC. PPx: Per surgery
[2018-01-04] MEDS: amLODIPine 5 MG Tablet PO SCH (12:49)
--- NOTE | 2018-01-04 21:31 | P.PNCS ---
Subjective Colorectal Surgery Post Op Day #: 2 Interval history: afebrile, VSS UO good olga PO Objective Result Diagrams: 01/04/18 06:09 01/04/18 06:09 Objective Remarks: PE alert Abd - soft, flat, wound dry Assessment and Plan - Plan Imp: OOB decr IVF adv PO dc pierson
[2018-01-04] MEDS: REMOVE OLD NICODERM (NICOTINE) PATCH T-DERMAL SCH (21:35)
[2018-01-05] MEDS: Morphine Inj 30 MG/30 ML PCA.VIAL PCA PRN ×2 (06:24→16:13)
[2018-01-05] MEDS: Pantoprazole Inj 40 MG Vial IV.PUSH SCH (08:57)
[2018-01-05] MEDS: amLODIPine 5 MG Tablet PO SCH (08:57)
[2018-01-05] MEDS: Heparin - SQ 10,000 UNITS/ML Vial SQ SCH ×2 (08:57→21:31)
[2018-01-05] MEDS: KCL 20 mEq/D5W/NaCl 0.9% Inj 1,000 ML IV.CONT SCH ×2 (09:02→21:30)
[2018-01-05 09:16] LABS: Baso # (Auto) 0.1 th/mm3 (0.0-0.2); Baso % (Auto) 0.5 % (0.0-2.0); Eos # (Auto) 0.1 th/mm3 (0.0-0.4); Eos % (Auto) 1.1 % (0.0-4.0); Hematocrit 36.6 % (39.0-51.0); Hemoglobin 12.2 gm/dL (13.0-17.0); Lymph # (Auto) 0.5 th/mm3 (1.0-4.8); Lymph % (Auto) 4.1 % (9.0-44.0); Mean Corpuscular HGB Conc 33.2 % (32.0-36.0); Mean Corpuscular Hemoglobin 28.6 pg (27.0-34.0); Mean Corpuscular Volume 85.9 fL (80.0-100.0); Mean Platelet Volume 8.3 fL (7.0-11.0); Mono # (Auto) 1.2 th/mm3 (0.0-0.9); Mono % (Auto) 9.7 % (0.0-8.0); Neut # (Auto) 10.7 th/mm3 (1.8-7.7); Neut % (Auto) 84.6 % (16.0-70.0); Platelet Count 302 th/mm3 (150-450); Red Blood Count 4.26 mil/mm3 (4.50-5.90); Red Cell Distribution Width 15.2 % (11.6-17.2); White Blood Count 12.6 th/mm3 (4.0-11.0)
--- NOTE | 2018-01-05 10:47 | P.PNIM ---
Subjective Interval history: The patient was resting in bed. He said his pain was well controlled. He said he was tolerating a liquid diet. He does endorse feeling hot and sweaty at times. He denies any pain on urination. He does endorse a cough with some mucus production. He wants to know how much activity he is allowed to have. Physical Exam Vital signs: Vital Signs 01/04/18 12:00 01/04/18 16:00 01/04/18 20:00 Temperature 99.7 F H 99.9 F H 99.5 F Pulse Rate 97 H 100 H 99 H Respiratory Rate 16 17 18 Blood Pressure 147/84 H 136/76 155/89 H Pulse Oximetry 95 96 96 01/05/18 00:00 01/05/18 04:00 01/05/18 08:00 Temperature 99.9 F H 99.0 F 98.6 F Pulse Rate 99 H 97 H 92 H Respiratory Rate 18 18 18 Blood Pressure 160/88 H 135/85 141/65 H Pulse Oximetry 96 98 97 Intake & Output 01/04/18 01/05/18 01/05/18 18:59 06:59 18:59 Intake Total 1000 / 1000 1000 / 1000 Output Total 775 / 775 800 / 800 Balance 225 / 225 200 / 200 Weight 90 kg Intake: IV 1000 / 1000 1000 / 1000 D5W/NS + KCL 20 mEq Inj 1,000 1000 / 1000 1000 / 1000 ML @ 75 mls/hr IV.CONT .[id number] [facility] Rx#:[id number] Output: Urine 775 / 775 800 / 800 Other: Date of Last Bowel Movement 01/01/18 01/01/18 Narrative: General: No acute distress. Head: Normocephalic. Atraumatic. EENT: Pupils equal round and reactive to light. Cardiovascular: Regular rate and rhythm. No murmurs, rubs or gallops. Respiratory: Lungs clear to auscultation bilaterally. No wheezes or rhonchi. Abdomen: Binder in place. Nontender. Musculoskeletal: No gross deformities. No edema. Skin: No obvious rashes or erythema. Neuro: Sensory and motor grossly intact. Cranial nerves II through XII grossly intact. - Urinary Catheter Management Indwelling Urethral Catheter Cath placed during this visit: yes, but has since been removed by the nurse Reason for continuing: Decision to DC catheter Insertion date: 01/02/18 Removal date: 01/04/18 Removal time: 12:50 Results - Labs CBC & Chem 7: 01/05/18 07:52 01/04/18 06:09 Laboratory Results - last 24 hr 01/05/18 07:52 WBC 12.6 H RBC 4.26 L Hgb 12.2 L Hct 36.6 L MCV 85.9 MCH 28.6 MCHC 33.2 RDW 15.2 Plt Count 302 MPV 8.3 Neut % (Auto) 84.6 H Lymph % (Auto) 4.1 L [place] % (Auto) 9.7 H Eos % (Auto) 1.1 Baso % (Auto) 0.5 Neut # (Auto) 10.7 H Lymph # (Auto) 0.5 L [place] # (Auto) 1.2 H Eos # (Auto) 0.1 Baso # (Auto) 0.1 WBC Differential . Differential Comment Auto diff final - Procedures 12/31/2017 The esophagus this appeared to be unremarkable and within normal limits The stomach this to appear to be unremarkable and within normal limits The duodenum also appeared to be unremarkable within normal limits possible slight dilation of the duodenal lumen but otherwise unremarkable Little could be seen as far as the colonic mucosa due to poor prep the procedure was aborted 01/01/2018 Obstructing colon mass in the distal transverse colon Surgeon: Lul Gibbons 01/03: With diagnosis of Obstructing lesion of the left Transverse Colon status post Exploratory laparotomy with subtotal abdominal Colectomy. Assessment and Plan - Plan Colonic mass Mr. Madrid is a 37-year-old male with no significant past medical history presents to the emergency department for evaluation of abdominal pain. CT abd/ pelvis shows large bowel obstruction and possible mass. GI consulted. EGD/ Colonoscopy was done on 12/31/2017 and again Colonoscopy on 01/01/2018. Colonoscopy showed a obstructing colonic mass in the distal transverse colon. Colorectal surgery was consulted. Obstructing lesion of the left transverse colon status post exploratory laparotomy with subtotal abdominal colectomy by doctor Darren Ortiz 01/03/18. -post-op care per CRS. -pain control as needed. -diet per surgery. On clears at this time. -incentive spirometry. -follow pathology. Hypertension Likely exacerbated by pain. -pain control. -amlodipine 5 mg daily. Tobacco abuse The pt continues to smoke. -continue Nicotine patch. -cessation instruction. Leukocytosis Likely reactive. -follow CBC. Improving. Low grade fevers Associated with cough. -check CXR and UA. PPx: Per surgery
--- NOTE | 2018-01-05 11:43 | XR ---
EXAM DATE: 01/05/2018 11:02 AM EDT AGE/SEX: 37 years / Male INDICATIONS: Cough. CLINICAL DATA: This is the patient's initial encounter. Patient reports that signs and symptoms have been present for 2 days and indicates a pain score of 0/10. MEDICAL/SURGICAL HISTORY: None. None. COMPARISON: No prior exams available for comparison. FINDINGS: Moderate free intracranial air. Lungs are clear The heart and pulmonary vascularity are normal. The portion of the bony skeleton visualized is unremarkable. CONCLUSION: Moderate free intraperitoneal air. Electronically signed by: Alvarez Johnston MD 01/05/2018 11:42 AM EDT
[2018-01-05] MEDS: REMOVE OLD NICODERM (NICOTINE) PATCH T-DERMAL SCH (21:32)
[2018-01-06] MEDS: Morphine Inj 30 MG/30 ML PCA.VIAL PCA PRN (02:24)
[2018-01-06] MEDS: Pantoprazole Inj 40 MG Vial IV.PUSH SCH (09:56)
[2018-01-06] MEDS: Heparin - SQ 10,000 UNITS/ML Vial SQ SCH ×2 (09:56→20:17)
[2018-01-06] MEDS: amLODIPine 5 MG Tablet PO SCH (09:57)
[2018-01-06] MEDS: KCL 20 mEq/D5W/NaCl 0.9% Inj 1,000 ML IV.CONT SCH ×2 (11:56→22:16)
--- NOTE | 2018-01-06 17:08 | P.PNIM ---
Subjective Interval history: The patient was complaining of hiccups. He was not passing gas. He says his pain was controlled. 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 He had no other acute complaints. Discussed with nursing. Physical Exam Vital signs: Vital Signs 01/05/18 20:00 01/06/18 00:00 01/06/18 08:00 Temperature 97.9 F 98.2 F 98.2 F Pulse Rate 92 H 95 H 83 Respiratory Rate 18 19 14 Blood Pressure 130/79 138/83 138/81 Pulse Oximetry 95 95 95 01/06/18 12:00 01/06/18 16:00 Temperature 98.0 F 98.2 F Pulse Rate 82 80 Respiratory Rate 19 18 Blood Pressure 150/92 H 143/56 H Pulse Oximetry 96 97 Intake & Output 01/05/18 01/06/18 01/06/18 18:59 06:59 18:59 Intake Total 800 / 800 1480 / 1480 1000 / 1000 Output Total 750 / 750 800 / 800 Balance 50 / 50 680 / 680 1000 / 1000 Weight 90 kg Intake: IV 1000 / 1000 1000 / 1000 D5W/NS + KCL 20 mEq Inj 1,000 1000 / 1000 1000 / 1000 ML @ 75 mls/hr IV.CONT .[id number] [facility] Rx#:[id number] Oral 800 / 800 480 / 480 Output: Urine 750 / 750 800 / 800 Other: Date of Last Bowel Movement 01/01/18 01/01/18 Narrative: General: No acute distress. Head: Normocephalic. Atraumatic. EENT: Pupils equal round and reactive to light. Cardiovascular: Regular rate and rhythm. No murmurs, rubs or gallops. Respiratory: Lungs clear to auscultation bilaterally. No wheezes or rhonchi. Abdomen: Binder in place. Nontender. Incision appears to be healing well. Musculoskeletal: No gross deformities. No edema. Skin: No obvious rashes or erythema. Neuro: Sensory and motor grossly intact. Cranial nerves II through XII grossly intact. - Urinary Catheter Management Indwelling Urethral Catheter Cath placed during this visit: yes, but has since been removed by the nurse Reason for continuing: Decision to DC catheter Insertion date: 01/02/18 Removal date: 01/04/18 Removal time: 12:50 Results - Labs CBC & Chem 7: 01/05/18 07:52 01/04/18 06:09 - Procedures 12/31/2017 The esophagus this appeared to be unremarkable and within normal limits The stomach this to appear to be unremarkable and within normal limits The duodenum also appeared to be unremarkable within normal limits possible slight dilation of the duodenal lumen but otherwise unremarkable Little could be seen as far as the colonic mucosa due to poor prep the procedure was aborted 01/01/2018 Obstructing colon mass in the distal transverse colon Surgeon: Lul Gibbons 01/03: With diagnosis of Obstructing lesion of the left Transverse Colon status post Exploratory laparotomy with subtotal abdominal Colectomy. Assessment and Plan - Plan Colonic mass Mr. Madrid is a 37-year-old male with no significant past medical history presents to the emergency department for evaluation of abdominal pain. CT abd/ pelvis shows large bowel obstruction and possible mass. GI consulted. EGD/ Colonoscopy was done on 12/31/2017 and again Colonoscopy on 01/01/2018. Colonoscopy showed a obstructing colonic mass in the distal transverse colon. Colorectal surgery was consulted. Obstructing lesion of the left transverse colon status post exploratory laparotomy with subtotal abdominal colectomy by doctor Darren Ortiz 01/03/18. Pathology with benign lymphoid aggregates. -post-op care per CRS. -pain control as needed. 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 -diet per surgery. On clears at this time. -incentive spirometry. Hypertension Likely exacerbated by pain. -pain control. -amlodipine 5 mg daily. Improved. Tobacco abuse The pt continues to smoke. -continue Nicotine patch. -cessation instruction. Leukocytosis Likely reactive. -follow CBC. Improving. Hiccups Started 01/05. -monitor. Start PPI if continues. PPx: Heparin
--- NOTE | 2018-01-06 17:15 | P.PNCS ---
Subjective Colorectal Surgery Post Op Day #: 4 Interval history: afebrile, VSS UO good olga PO min flatus Objective Result Diagrams: 01/05/18 07:52 01/04/18 06:09 Objective Remarks: PE alert Abd - soft, flat, wound dry Assessment and Plan - Plan Imp: OOB decr IVF adv PO when +flatus dc pierson path pending
[2018-01-06] MEDS: Bisacodyl 10 MG Supp RECTAL SCH (19:32)
[2018-01-06] MEDS: REMOVE OLD NICODERM (NICOTINE) PATCH T-DERMAL SCH (20:19)
[2018-01-07 03:37] LABS: Bilirubin,Urine Negative (Negative); Clarity,Urine Clear (Clear); Color,Urine Yellow (Yellw/Straw); Glucose,Urine (UA) Negative (Negative); Leukocyte Esterase,Urine Negative (Negative); Mucus,Urine Few /lpf (Occasional); Nitrite,Urine Negative (Negative); Specific Gravity,Urine 1.013 (1.002-1.035)
[2018-01-07 08:03] LABS: Hematocrit 34.9 % (39.0-51.0); Hemoglobin 11.8 gm/dL (13.0-17.0); Mean Corpuscular HGB Conc 33.8 % (32.0-36.0); Mean Corpuscular Hemoglobin 28.9 pg (27.0-34.0); Mean Corpuscular Volume 85.4 fL (80.0-100.0); Platelet Count 413 th/mm3 (150-450); Red Blood Count 4.08 mil/mm3 (4.50-5.90); White Blood Count 12.5 th/mm3 (4.0-11.0)
[2018-01-07 08:15] LABS: Anion Gap 4 meq/L (5-15); Blood Urea Nitrogen 10 mg/dL (7-18); Calcium 8.1 mg/dL (8.5-10.1); Carbon Dioxide 31.1 meq/L (21.0-32.0); Chloride 102 meq/L (98-107); Glomerular Filtration Rate Greater Than 89 mL/min (>89); Glucose,Random 123 mg/dL (74-106); Potassium 3.9 meq/L (3.5-5.1); Sodium 137 meq/L (136-145)
[2018-01-07] MEDS: Pantoprazole Inj 40 MG Vial IV.PUSH SCH (09:00)
[2018-01-07] MEDS: Heparin - SQ 10,000 UNITS/ML Vial SQ SCH ×2 (09:00→20:11)
[2018-01-07] MEDS: amLODIPine 5 MG Tablet PO SCH (09:00)
[2018-01-07] MEDS: Bisacodyl 10 MG Supp RECTAL SCH (09:01)
[2018-01-07] MEDS: KCL 20 mEq/D5W/NaCl 0.9% Inj 1,000 ML IV.CONT SCH ×2 (09:07→12:49)
[2018-01-07] MEDS ORDERED: Bisacodyl 10 MG Supp RECTAL PRN (10:43)
--- NOTE | 2018-01-07 10:49 | P.PNCS ---
Subjective Colorectal Surgery Post Op Day #: 5 Interval history: afebrile, VSS UO good olga PO +flatus Objective Result Diagrams: 01/07/18 07:03 01/07/18 07:03 Objective Remarks: PE alert Abd - soft, flat, wound dry Assessment and Plan - Plan Imp: OOB decr IVF adv PO when +flatus path pending - Crohn's disease dc plans
--- NOTE | 2018-01-07 14:12 | P.PNIM ---
Subjective Interval history: The patient said he felt well. His pain was controlled. He had a bowel movement. He is tolerating a diet. He thinks he will be able to go home in the morning. Discussed with colorectal surgery. Physical Exam Vital signs: Vital Signs 01/06/18 16:00 01/06/18 20:00 01/06/18 23:23 Temperature 98.2 F 97.9 F Pulse Rate 80 83 Respiratory Rate 18 17 17 Blood Pressure 143/56 H 142/82 H Pulse Oximetry 97 99 01/07/18 00:00 01/07/18 08:00 01/07/18 12:00 Temperature 97.4 F L 97.8 F 97.9 F Pulse Rate 80 75 84 Respiratory Rate 17 18 19 Blood Pressure 136/79 128/84 136/93 H Pulse Oximetry 100 97 98 Intake & Output 01/06/18 01/07/18 01/07/18 18:59 06:59 18:59 Intake Total 1000 / 1000 1480 / 1480 1101 / 1101 Output Total 600 / 600 Balance 1000 / 1000 880 / 880 1101 / 1101 Weight 90 kg Intake: IV 1000 / 1000 1000 / 1000 1101 / 1101 D5W/NS + KCL 20 mEq Inj 1,000 1000 / 1000 1000 / 1000 1101 / 1101 ML @ 75 mls/hr IV.CONT .[id number] [facility] Rx#:[id number] Oral 480 / 480 Output: Urine 600 / 600 Other: Date of Last Bowel Movement 01/01/18 Narrative: General: No acute distress. Head: Normocephalic. Atraumatic. EENT: Pupils equal round and reactive to light. Cardiovascular: Regular rate and rhythm. No murmurs, rubs or gallops. Respiratory: Lungs clear to auscultation bilaterally. No wheezes or rhonchi. Abdomen: Binder in place. Nontender. Incision appears to be healing well. Musculoskeletal: No gross deformities. No edema. Skin: No obvious rashes or erythema. Neuro: Sensory and motor grossly intact. Cranial nerves II through XII grossly intact. - Urinary Catheter Management Indwelling Urethral Catheter Cath placed during this visit: yes, but has since been removed by the nurse Reason for continuing: Decision to DC catheter Insertion date: 01/02/18 Removal date: 01/04/18 Removal time: 12:50 Results - Labs CBC & Chem 7: 01/07/18 07:03 01/07/18 07:03 Laboratory Results - last 24 hr 01/07/18 01/07/18 01/07/18 03:10 07:03 07:03 WBC 12.5 H RBC 4.08 L Hgb 11.8 L Hct 34.9 L MCV 85.4 MCH 28.9 MCHC 33.8 RDW 15.0 Plt Count 413 D MPV 8.0 Sodium 137 Potassium 3.9 Chloride 102 Carbon Dioxide 31.1 Anion Gap 4 L BUN 10 Creatinine 0.65 Estimated GFR Greater than 89 Random Glucose 123 H Calcium 8.1 L Magnesium 2.0 Urine Color Yellow Urine Clarity Clear Urine pH 6.0 Ur Specific Murray 1.013 Urine Protein Negative Urine Glucose (UA) Negative Urine Ketones Negative Urine Occult Blood Negative Urine Nitrate Negative Urine Bilirubin Negative Urine Urobilinogen Less than 2 Ur Leukocyte Esterase Negative Urine RBC 1 Urine WBC 2 Urine Mucus Few H Micro UA Comment Culture not ind Ur Microscopic Review Not Reportable Urine Culture Comments Culture not ind - Procedures 12/31/2017 The esophagus this appeared to be unremarkable and within normal limits The stomach this to appear to be unremarkable and within normal limits The duodenum also appeared to be unremarkable within normal limits possible slight dilation of the duodenal lumen but otherwise unremarkable Little could be seen as far as the colonic mucosa due to poor prep the procedure was aborted 01/01/2018 Obstructing colon mass in the distal transverse colon Surgeon: Lul Gibbons 01/03: With diagnosis of Obstructing lesion of the left Transverse Colon status post Exploratory laparotomy with subtotal abdominal Colectomy. Assessment and Plan - Plan Colonic mass Mr. Madrid is a 37-year-old male with no significant past medical history presents to the emergency department for evaluation of abdominal pain. CT abd/ pelvis shows large bowel obstruction and possible mass. GI consulted. EGD/ Colonoscopy was done on 12/31/2017 and again Colonoscopy on 01/01/2018. Colonoscopy showed a obstructing colonic mass in the distal transverse colon. Colorectal surgery was consulted. Obstructing lesion of the left transverse colon status post exploratory laparotomy with subtotal abdominal colectomy by doctor Darren Ortiz 01/03/18. Pathology suggestive of Crohn's disease. -follow up with colorectal surgery. -pain control as needed. -regular diet. -incentive spirometry. Hypertension Likely exacerbated by pain. -pain control. -amlodipine 5 mg daily. Improved. Tobacco abuse The pt continues to smoke. -continue Nicotine patch. -cessation instruction. Leukocytosis Likely reactive. -follow CBC. Stable. Hiccups Started 01/05. -seems resolved. PPx: Heparin Discharge Planning: Anticipate d/c home in AM.
[2018-01-07] MEDS: REMOVE OLD NICODERM (NICOTINE) PATCH T-DERMAL SCH (20:15)
[2018-01-08] MEDS: KCL 20 mEq/D5W/NaCl 0.9% Inj 1,000 ML IV.CONT SCH (06:26)
[2018-01-08] MEDS: Heparin - SQ 10,000 UNITS/ML Vial SQ SCH ×2 (10:22→21:08)
[2018-01-08] MEDS: Pantoprazole Inj 40 MG Vial IV.PUSH SCH (10:23)
[2018-01-08] MEDS: amLODIPine 5 MG Tablet PO SCH (10:23)
--- NOTE | 2018-01-08 12:37 | P.PNIM ---
Subjective Interval history: The patient was concerned about going home. He said he strains to have bowel movements and when he does it is very uncomfortable. He has questions about the details of his surgery. He says he does not have a place to go at the moment. Discussed with nursing. Physical Exam Vital signs: Vital Signs 01/07/18 16:00 01/07/18 20:00 01/08/18 00:00 Temperature 97.7 F 99.0 F 98.9 F Pulse Rate 81 80 77 Respiratory Rate 18 18 18 Blood Pressure 135/87 147/88 H 178/105 H Pulse Oximetry 100 98 98 01/08/18 01:00 01/08/18 04:00 01/08/18 08:00 Temperature 98.2 F 98.6 F Pulse Rate 78 78 Respiratory Rate 16 18 17 Blood Pressure 146/90 H 164/98 H Pulse Oximetry 97 97 Intake & Output 01/07/18 01/08/18 01/08/18 18:59 06:59 18:59 Intake Total 1101 / 1101 Balance 1101 / 1101 Weight 85.2 kg Intake: IV 1101 / 1101 D5W/NS + KCL 20 mEq Inj 1,000 1101 / 1101 ML @ 75 mls/hr IV.CONT .[id number] [facility] Rx#:[id number] Narrative: General: No acute distress. Head: Normocephalic. Atraumatic. EENT: Pupils equal round and reactive to light. Cardiovascular: Regular rate and rhythm. No murmurs, rubs or gallops. Respiratory: Lungs clear to auscultation bilaterally. No wheezes or rhonchi. Abdomen: Binder in place. Nontender. Incision appears to be healing well. Musculoskeletal: No gross deformities. No edema. Skin: No obvious rashes or erythema. Neuro: Sensory and motor grossly intact. Cranial nerves II through XII grossly intact. - Urinary Catheter Management Indwelling Urethral Catheter Cath placed during this visit: yes, but has since been removed by the nurse Reason for continuing: Decision to DC catheter Insertion date: 01/02/18 Removal date: 01/04/18 Removal time: 12:50 Results - Labs CBC & Chem 7: 01/07/18 07:03 01/07/18 07:03 - Procedures 12/31/2017 The esophagus this appeared to be unremarkable and within normal limits The stomach this to appear to be unremarkable and within normal limits The duodenum also appeared to be unremarkable within normal limits possible slight dilation of the duodenal lumen but otherwise unremarkable Little could be seen as far as the colonic mucosa due to poor prep the procedure was aborted 01/01/2018 Obstructing colon mass in the distal transverse colon Surgeon: Lul Gibbons 01/03: With diagnosis of Obstructing lesion of the left Transverse Colon status post Exploratory laparotomy with subtotal abdominal Colectomy. Assessment and Plan - Plan Colonic mass Mr. Madrid is a 37-year-old male with no significant past medical history presents to the emergency department for evaluation of abdominal pain. CT abd/ pelvis shows large bowel obstruction and possible mass. GI consulted. EGD/ Colonoscopy was done on 12/31/2017 and again Colonoscopy on 01/01/2018. Colonoscopy showed a obstructing colonic mass in the distal transverse colon. Colorectal surgery was consulted. Obstructing lesion of the left transverse colon status post exploratory laparotomy with subtotal abdominal colectomy by doctor Darren Ortiz 01/03/18. Pathology suggestive of Crohn's disease. -follow up with colorectal surgery. -pain control as needed. -soft diet, low residue, lactose free. -incentive spirometry. Hypertension Likely exacerbated by pain. -pain control. -amlodipine 5 mg daily. Improved. Tobacco abuse The pt continues to smoke. -continue Nicotine patch. -cessation instruction. Leukocytosis Likely reactive. -follow CBC. Stable. Disposition The pt states he is not sure where he will stay when discharged. -case management assistance appreciated. PPx: Heparin Discharge Planning: Anticipate d/c home in AM if feeling better.
[2018-01-08] MEDS ORDERED: Influenza (Quadrivalent) Vaccine 0.5 ML Syringe IM ONE (12:45)
--- NOTE | 2018-01-08 16:37 | P.DIET ---
Nutritional Evaluation Type of nutrition evaluation: follow-up Nutrition consult regarding: Diet Evaluation Nutrition screening: Weight Loss > 10 lbs Subjective Subjective Comments: Variable po intake 25% to 100% Objective - Diagnosis large bowel obstruction - Objective % IBW: 87 (IBW = 166lb) Body Weight Used for Calculations: Actual Energy Needs - Lower Range (kCal/kg): 25 Energy Needs - Upper Range (kCal/kg): 30 Lower Limit kCal/kg (kCals): 1,643 Upper Limit kCal/kg (kCals): 1,971 Lower Limit Protein Factor (Grams per Kg): 1.1 Upper Limit Protein Factor (Grams per Kg): 1.3 Lower Protein Needs (Protein): 72 Upper Protein Needs (Protein): 85 Fluid Factor (ml/kg): 30 Estimated Fluid Needs (ml): 1,971 Dietitian Reviewed in Medical Record: Current diet, Curent medications, Intake & Output, Labs, Medical history Diet Order: Soft Oral Diet Intake Amount: Fair 50-75% Objective Comments: 01/03/18 s/p exp lap w/subtotal abdominal colectomy pathology suggestive of Crohns Disease Assessment Assessment: Pt continues at nutritional risk r/t reported unplanned wt loss and is s/p exp lap w/subtotal abdominal colectomy. Variable po intake 25% to 100% for meals. Send Ensure TID for additional nutrition(= 250 kcl and 9g protein per serving). Labs reviewed. Wt. changes noted. Dietitian following. Recommendations: 1. Send Ensure TID for additional nutrition 2. Dietitian following Dietitian to Monitor: Lab values, Supplement acceptance, Intake & Output, Diet tolerance, Weight change, PO Intake, Medical course
[2018-01-08] MEDS: REMOVE OLD NICODERM (NICOTINE) PATCH T-DERMAL SCH (21:10)
[2018-01-09] MEDS: Heparin - SQ 10,000 UNITS/ML Vial SQ SCH ×2 (08:53→20:16)
[2018-01-09] MEDS: amLODIPine 5 MG Tablet PO SCH (08:53)
--- NOTE | 2018-01-09 11:47 | P.PNIM ---
Subjective Interval history: The patient was complaining of liquid bowel movements. He said his bowel movements were green but there were some formed elements and there. He says he is still not able to eat everything. He requests going back to a liquid diet. He has been ambulating. He endorses some abdominal pain. Physical Exam Vital signs: Vital Signs 01/08/18 12:00 01/08/18 16:00 01/08/18 20:00 Temperature 98.3 F 98.1 F 98.7 F Pulse Rate 75 81 84 Respiratory Rate 18 18 20 Blood Pressure 165/92 H 138/87 158/97 H Pulse Oximetry 98 98 98 01/09/18 00:00 01/09/18 08:00 Temperature 98.5 F 98.4 F Pulse Rate 87 86 Respiratory Rate 20 17 Blood Pressure 155/89 H 162/101 H Pulse Oximetry 96 98 Intake & Output 01/08/18 01/09/18 01/09/18 18:59 06:59 18:59 Intake Total 850 / 850 480 / 480 Output Total 500 / 500 Balance 850 / 850 -20 / -20 Weight 85.2 kg 85 kg Intake: Oral 850 / 850 480 / 480 Output: Urine 500 / 500 Other: # Voids 6 2 Date of Last Bowel Movement 01/07/18 # Bowel Movements 1 1 Narrative: General: No acute distress. Head: Normocephalic. Atraumatic. EENT: Pupils equal round and reactive to light. Cardiovascular: Regular rate and rhythm. No murmurs, rubs or gallops. Respiratory: Lungs clear to auscultation bilaterally. No wheezes or rhonchi. Abdomen: Binder in place. Nontender. Incision appears to be healing well. Musculoskeletal: No gross deformities. No edema. Skin: Mild erythema around incision. Neuro: Sensory and motor grossly intact. Cranial nerves II through XII grossly intact. - Urinary Catheter Management Indwelling Urethral Catheter Cath placed during this visit: yes, but has since been removed by the nurse Reason for continuing: Decision to DC catheter Insertion date: 01/02/18 Removal date: 01/04/18 Removal time: 12:50 Results - Labs CBC & Chem 7: 01/07/18 07:03 01/07/18 07:03 - Procedures 12/31/2017 The esophagus this appeared to be unremarkable and within normal limits The stomach this to appear to be unremarkable and within normal limits The duodenum also appeared to be unremarkable within normal limits possible slight dilation of the duodenal lumen but otherwise unremarkable Little could be seen as far as the colonic mucosa due to poor prep the procedure was aborted 01/01/2018 Obstructing colon mass in the distal transverse colon Surgeon: Lul Gibbons 01/03: With diagnosis of Obstructing lesion of the left Transverse Colon status post Exploratory laparotomy with subtotal abdominal Colectomy. Assessment and Plan - Plan Colonic mass Mr. Madrid is a 37-year-old male with no significant past medical history presents to the emergency department for evaluation of abdominal pain. CT abd/ pelvis shows large bowel obstruction and possible mass. GI consulted. EGD/ Colonoscopy was done on 12/31/2017 and again Colonoscopy on 01/01/2018. Colonoscopy showed a obstructing colonic mass in the distal transverse colon. Colorectal surgery was consulted. Obstructing lesion of the left transverse colon status post exploratory laparotomy with subtotal abdominal colectomy by doctor Darren Ortiz 01/03/18. Pathology suggestive of Crohn's disease. -follow up with colorectal surgery. -pain control as needed. -downgrade to full liquid diet as pt continues to complain of liquid green stools and abdominal discomfort. -monitor incision site. Mild irritation noted 01/09. Would add Keflex if does not improve. -incentive spirometry. Hypertension Likely exacerbated by pain. -pain control. -amlodipine 5 mg daily. Increase as needed. Tobacco abuse The pt continues to smoke. -continue Nicotine patch. -cessation instruction. Leukocytosis Likely reactive. -follow CBC. Stable. Disposition The pt states he is not sure where he will stay when discharged. -case management assistance appreciated. PPx: Heparin Discharge Planning: The pt is cleared for discharge, however, has continued abdominal discomfort, liquid green diarrhea and is not eating that well. D/c home once symptoms are improved.
[2018-01-09] MEDS ORDERED: Zolpidem Tartrate 5 MG Tablet PO ONE (20:04)
[2018-01-09] MEDS: REMOVE OLD NICODERM (NICOTINE) PATCH T-DERMAL SCH (20:17)
[2018-01-10 08:19] LABS: Albumin 2.7 g/dL (3.4-5.0); Anion Gap 8 meq/L (5-15); Aspartate Aminotransferase 70 U/L (15-37); Blood Urea Nitrogen 11 mg/dL (7-18); Calcium 8.5 mg/dL (8.5-10.1); Carbon Dioxide 30.6 meq/L (21.0-32.0); Chloride 97 meq/L (98-107); Glomerular Filtration Rate Greater Than 89 mL/min (>89); Glucose,Random 158 mg/dL (74-106); Potassium 3.2 meq/L (3.5-5.1); Sodium 136 meq/L (136-145)
[2018-01-10] MEDS: amLODIPine 5 MG Tablet PO SCH (08:19)
[2018-01-10] MEDS: Heparin - SQ 10,000 UNITS/ML Vial SQ SCH (08:19)
[2018-01-10 08:23] LABS: Alanine Aminotransferase 49 U/L (12-78); Alkaline Phosphatase 184 U/L (45-117); Total Protein 7.2 g/dL (6.4-8.2)
--- NOTE | 2018-01-10 11:12 | P.PNIM ---
Subjective Interval history: f/u; s/p bowel resection in no acute distress. has mild abdominal pain. no nausea or vomiting. d/w the RN. Physical Exam Vital signs: Vital Signs 01/09/18 12:00 01/09/18 16:00 01/09/18 20:00 Temperature 98.0 F 98.6 F 98.6 F Pulse Rate 83 90 85 Respiratory Rate 17 17 18 Blood Pressure 157/96 H 135/85 144/92 H Pulse Oximetry 97 95 96 01/10/18 00:00 Temperature 98.5 F Pulse Rate 82 Respiratory Rate 18 Blood Pressure 154/94 H Pulse Oximetry 96 Intake & Output 01/09/18 01/10/18 01/10/18 18:59 06:59 18:59 Intake Total 960 / 960 780 / 780 Output Total 600 / 600 Balance 960 / 960 180 / 180 Weight 85 kg Intake: Oral 960 / 960 780 / 780 Output: Urine 600 / 600 Other: # Voids 3 1 Date of Last Bowel Movement 01/07/18 # Bowel Movements 1 1 - Constitutional no acute distress - Routine Respiratory Exam Present: CTA bilaterally - Routine Cardiovascular Exam Present: RRR - Routine Abdominal Exam Present: soft - Routine Extremities Exam Comments: no pedal edema. - Routine Neurological Exam Present: alert, oriented X3 - Urinary Catheter Management Indwelling Urethral Catheter Cath placed during this visit: yes, but has since been removed by the nurse Reason for continuing: Decision to DC catheter Insertion date: 01/02/18 Removal date: 01/04/18 Removal time: 12:50 Results - Labs CBC & Chem 7: 01/07/18 07:03 01/10/18 07:12 Laboratory Results - last 24 hr 01/10/18 07:12 Sodium 136 Potassium 3.2 L Chloride 97 L Carbon Dioxide 30.6 Anion Gap 8 BUN 11 Creatinine 0.76 Estimated GFR Greater than 89 Random Glucose 158 H Calcium 8.5 Total Bilirubin 0.6 Direct Bilirubin 0.2 Indirect Bilirubin 0.4 AST 70 H ALT 49 Alkaline Phosphatase 184 H Total Protein 7.2 Albumin 2.7 L - Procedures 12/31/2017 The esophagus this appeared to be unremarkable and within normal limits The stomach this to appear to be unremarkable and within normal limits The duodenum also appeared to be unremarkable within normal limits possible slight dilation of the duodenal lumen but otherwise unremarkable Little could be seen as far as the colonic mucosa due to poor prep the procedure was aborted 01/01/2018 Obstructing colon mass in the distal transverse colon Surgeon: Lul Gibbons 01/03: With diagnosis of Obstructing lesion of the left Transverse Colon status post Exploratory laparotomy with subtotal abdominal Colectomy. Assessment and Plan - Plan Colonic mass Mr. Madrid is a 37-year-old male with no significant past medical history presents to the emergency department for evaluation of abdominal pain. CT abd/ pelvis shows large bowel obstruction and possible mass. GI consulted. EGD/ Colonoscopy was done on 12/31/2017 and again Colonoscopy on 01/01/2018. Colonoscopy showed a obstructing colonic mass in the distal transverse colon. Colorectal surgery was consulted. Obstructing lesion of the left transverse colon status post exploratory laparotomy with subtotal abdominal colectomy by doctor Darren Ortiz 01/03/18. Pathology suggestive of Crohn's disease. -follow up with colorectal surgery. -pain control as needed. -monitor incision site. Mild irritation noted 01/09. -incentive spirometry. elevated BP's Likely exacerbated by pain. -pain control. Tobacco abuse The pt continues to smoke. -continue Nicotine patch. -cessation instruction. Leukocytosis Likely reactive. -follow CBC. Stable. Hypokalemia; will replace. PPx: Heparin Discharge Planning: dc home when cleared by colorectal surgery. f/u; pcp, GI and colorectal surgery. see med list. d/w the patient and RN. Queenie was consulted prior to discharge.
--- NOTE | 2018-01-10 11:16 | P.DS ---
Date of admission: 12/29/17 23:26 Primary care physician: No Primary Care Physician Brief History from admission: 37-year-old male with no significant past medical history presents to the emergency department for evaluation of abdominal pain. The patient is extremely lethargic and history is obtained mostly from his girlfriend. She reports he has had chronic "digestive issues" since she has known him. She states that for the past 2 days he has had a sharp, stabbing epigastric pain that acutely worsened today. He has had multiple episodes of nonbloody nonbilious emesis and constant nausea. His last bowel movement was approximately 5 days ago. He reports an 8 pound weight loss over the last week. He denies chest pain or shortness of breath. No fever/chills. DS: Medications - Discharge Medications Prescriptions: oxycodone-acetaminophen 1 tab PO Q6H PRN #10 tab PRN Reason: acute pain DS: Summary Hospital Course: Colonic mass Mr. Madrid is a 37-year-old male with no significant past medical history presents to the emergency department for evaluation of abdominal pain. CT abd/ pelvis shows large bowel obstruction and possible mass. GI consulted. EGD/ Colonoscopy was done on 12/31/2017 and again Colonoscopy on 01/01/2018. Colonoscopy showed a obstructing colonic mass in the distal transverse colon. Colorectal surgery was consulted. Obstructing lesion of the left transverse colon status post exploratory laparotomy with subtotal abdominal colectomy by doctor Darren Ortiz 01/03/18. Pathology suggestive of Crohn's disease. -follow up with colorectal surgery. -pain control as needed. -monitor incision site. Mild irritation noted 01/09. -incentive spirometry. elevated BP's Likely exacerbated by pain. -pain control. Tobacco abuse The pt continues to smoke. -continue Nicotine patch. -cessation instruction. Leukocytosis Likely reactive. -follow CBC. Stable. Hypokalemia; will replace. - Time Spent with Patient Total time spent providing and/or coordinating discharge services: Less than 30 minutes - Quality: VTE Deep Vein Thrombosis/Pulmonary Embolism Present on Admission: No Exam Vital signs: Vital Signs 01/09/18 12:00 01/09/18 16:00 01/09/18 20:00 Temperature 98.0 F 98.6 F 98.6 F Pulse Rate 83 90 85 Respiratory Rate 17 17 18 Blood Pressure 157/96 H 135/85 144/92 H Pulse Oximetry 97 95 96 01/10/18 00:00 Temperature 98.5 F Pulse Rate 82 Respiratory Rate 18 Blood Pressure 154/94 H Pulse Oximetry 96 Intake & Output 01/09/18 01/10/18 01/10/18 18:59 06:59 18:59 Intake Total 960 / 960 780 / 780 Output Total 600 / 600 Balance 960 / 960 180 / 180 Weight 85 kg Intake: Oral 960 / 960 780 / 780 Output: Urine 600 / 600 Other: # Voids 3 1 Date of Last Bowel Movement 01/07/18 # Bowel Movements 1 1 - Constitutional no acute distress - Routine Respiratory Exam Present: CTA bilaterally - Routine Cardiovascular Exam Present: RRR - Routine Abdominal Exam Present: soft - Routine Extremities Exam Comments: no pedal edema. - Routine Neurological Exam Present: alert, oriented X3 Results Procedures completed during hospitalization: 12/31/2017 The esophagus this appeared to be unremarkable and within normal limits The stomach this to appear to be unremarkable and within normal limits The duodenum also appeared to be unremarkable within normal limits possible slight dilation of the duodenal lumen but otherwise unremarkable Little could be seen as far as the colonic mucosa due to poor prep the procedure was aborted 01/01/2018 Obstructing colon mass in the distal transverse colon Surgeon: Lul Gibbons 01/03: With diagnosis of Obstructing lesion of the left Transverse Colon status post Exploratory laparotomy with subtotal abdominal Colectomy. Completed studies during hospitalization: Pending at discharge 01/01/18 07:24 Surgical [PTH] Routine 01/02/18 08:57 Surgical [PTH] Routine Labs on day of discharge: Labs from last 24 hours 01/10/18 07:12 Sodium 136 Potassium 3.2 L Chloride 97 L Carbon Dioxide 30.6 Anion Gap 8 BUN 11 Creatinine 0.76 Estimated GFR Greater than 89 Random Glucose 158 H Calcium 8.5 Total Bilirubin 0.6 Direct Bilirubin 0.2 Indirect Bilirubin 0.4 AST 70 H ALT 49 Alkaline Phosphatase 184 H Total Protein 7.2 Albumin 2.7 L - Impressions ITS Impressions Abdomen/Pelvis CT 12/29/17 21:21 CONCLUSION: 1. Distention of the proximal colon to the distal transverse with a discrete transition at the level of the splenic flexure. 2. There is a short segment of diffuse mural thickening at the splenic flexure. Findings could represent a focal colitis or possibly a carcinoma forming an apple core lesion. With the abrupt transition, I favor the latter. Colonoscopy is recommended for further evaluation. Abdomen X-Ray 01/01/18 17:44 CONCLUSION: Nonspecific mild gaseous distention of small and large bowel most characteristic of an ileus. Chest X-Ray 01/05/18 00:00 CONCLUSION: Moderate free intraperitoneal air. Discharge Plan - Discharge Disposition Patient Disposition: 01 Discharge Home - Discharge Condition Condition: Stable - Discharge Details Discharge Comment: OK to discharge once I have seen the patient, thanks - Physicians Team Primary Care Provider: Primary Care Pippa Johnson Attending Provider: Dez Hopkins Other Providers: Lul Gibbons MD ; Olamide Joseph MD
--- NOTE | 2018-01-10 12:50 | P.PNCS ---
Subjective Colorectal Surgery Post Op Day #: 8 Interval history: s/p subtotal colectomy comfortable Objective Result Diagrams: 01/07/18 07:03 01/10/18 07:12 Objective Remarks: PE alert Abd - soft, flat, wound dry Assessment and Plan - Plan Doing well Home today
== END 2018-01-10 14:54 | disposition home or self-care (01) ==
LOC: NEPD 18:06 → NEDA 23:26 → N06 12-30 02:27 → HCIS 01-02 18:46 → HCPC 01-02 20:14 → N07 01-03 17:37
PROVIDERS: ADMIT Internal Medicine; ATTEND Internal Medicine
PROC: COLONOS (2017-12-31 11:06)
PROC: PANENDO (2017-12-31 11:06)